=== PATIENT | male | born 1965 | race Caucasian/White ===

== ENCOUNTER → 2016-08-07 | Outpatient (CLI) | payer BC ==
[~2016-08-07] VITALS: Ht 182.9 cm; Wt 204.3 kg
[~2016-08-07] MED LIST: ALBU1AER9 INH; CMD75 PO; FRS/40 PO; GUAISYP4 PO; POTA20TA16 PO; SPIR25TA89 PO
[2016-08-07 16:16] VITALS: BP 146/91; PULSE 86; Ht 182.9 cm; Wt 204.3 kg
== END | disposition home or self-care (01) ==
LOC: C.NEUR 15:51
PROVIDERS: ATTEND Internal Medicine Pulmonary Disease
DX: G47.33 Obstructive sleep apnea (adult) (pediatric) (principal); I87.2 Venous insufficiency (chronic) (peripheral); E66.01 Morbid (severe) obesity due to excess calories; M19.90 Unspecified osteoarthritis, unspecified site; M25.50 Pain in unspecified joint

== ENCOUNTER 2018-08-08 09:32 | Inpatient (IN) ==
[2018-08-08] MEDS ORDERED: PANTOprazole 80 MG in DEXTROSE 5% 100 ML IV ONE (10:13)
[2018-08-08] MEDS ORDERED: SODIUM CHLORIDE 0.9% 500 ML IV ONE (10:16)
[2018-08-08 11:15] LABS: INR 2.6 (0.9-1.1); Partial Thromboplastin Ratio 1.1; Partial Thromboplastin Time 28.8 Seconds (21.0-31.0); Prothrombin Time 25.2 Seconds (9.0-12.0)
[2018-08-08 11:24] LABS: Albumin Level 3.1 gm/dl (3.4-5.0); BUN Creatinine Ratio 16.3 (10-20); Calcium 8.7 mg/dl (8.5-10.1); Creatinine Clr Calc Pharmacy 145.8 ml/min; Est GFR (African American) 88.4; Est GFR (Non-African American) 76.2; Hematocrit (blood only) 19.3 % (42-52); Mean Corpuscular Hgb Conc 31.1 g/dL (32-36); Mean Platelet Volume 10.3 fL (7.4-10.4); Nucleated RBC # (auto) 0.05 K/uL (0-0); Nucleated RBC % (auto) 0.7 %; Platelet Count 248 K/uL (130-400); Potassium 3.8 mmol/L (3.5-5.1); RDW Coefficient of Variation 16.1 % (11.5-14.5); RDW Standard Deviation 49.6 fL (36.4-46.3); Red Blood Count 2.27 M/uL (4.7-6.1); White Blood Count 6.96 K/uL (4.8-10.8)
[2018-08-08 11:28] LABS: Albumin Globulin Ratio 0.9 (0.9-2); Bilirubin,Total 0.6 mg/dl (0.2-1); Globulin 3.3 gm/dl (2.5-4.0); Total Protein 6.4 gm/dl (6.4-8.2); Troponin I 0.016 ng/ml (0-0.045)
[2018-08-08 11:31] LABS: Basophils # (auto) 0.03 K/uL (0-0.2); Basophils % (auto) 0.4 %; Eosinophils # (auto) 0.04 K/uL (0-0.5); Eosinophils % (auto) 0.6 %; Immature Granulocytes # (auto) 0.18 K/uL (0.00-0.02); Immature Granulocytes % (auto) 2.6 %; Lymphocytes # (auto) 0.75 K/uL (1.2-3.4); Lymphocytes % (auto) 10.8 %; Microcytosis Present; Monocytes # (auto) 0.85 K/uL (0.11-0.59); Monocytes % (auto) 12.2 %; Neutrophils # (auto) 5.11 K/uL (1.4-6.5); Neutrophils % (auto) 73.4 %; Polychromasia 1+
--- NOTE | 2018-08-08 12:34 | History & Physical Report ---
Date of Service August 08, 2018 Assessment & Plan (1) Acute blood loss anemia: Patient presents with a hemoglobin of 6 and 3-week history of melena. Patient takes meloxicam for arthritic complaints. The patient's been lightheaded. Patient be transfused 2 units of blood iron studies be checked in the morning GI consultation will be undertaken for possible endoscopy. Patient be put on bolus Protonix I personally spoke to Dr. Fowler who will review the patient and determine the need for endoscopy (2) HTN (hypertension): Patient typically takes furosemide and spironolactone for blood pressure control these be continued especially in the face of infusions of fluids and blood (3) Morbid obesity: Patient's morbid obesity does affect his ability to ventilate and he does have obstructive sleep apnea which will be placed on his home BiPAP (4) Arthritis: Patient's meloxicam will be held will be offered Ultram for pain control if needed (5) DVT (deep venous thrombosis): Patient typically takes Coumadin his INR is therapeutic on presentation, I spoke to Dr. Elizalde did not request reversal but did request just cessation of the Coumadin therapy at this time will use [facility] History of Present Illness Primary Care Provider: Joel Mendoza DO Patient presents with a 3-week history of melena takes chronic Coumadin therapy for previous DVT he also takes meloxicam therapy for generalized arthritic complaints. He was dyspneic this morning at work was nauseous and lightheaded he was told he looked as white as a sheet. Patient was found to have hemoglobin of 6 in the emergency department he was recommended for admission for acute blood loss anemia Allergies Allergy/AdvReac Type Severity Reaction Status Date / Time No Known Allergies Allergy Unknown Verified 08/08/18 10:13 Home Medications Home Medications Medication Instructions Recorded Confirmed Type acetaminophen [Tylenol Extra 0 mg PO DIRECTED PRN 08/08/18 08/08/18 History Strength] furosemide 40 mg PO DAILY 08/08/18 08/08/18 History meloxicam 15 mg PO DAILY 08/08/18 08/08/18 History potassium chloride 20 meq PO DAILY 08/08/18 08/08/18 History spironolactone 50 mg PO BID 08/08/18 08/08/18 History warfarin 5 mg PO DAILY 08/08/18 08/08/18 History Past Med/Surg History Medical History Acute blood loss anemia Arthritis DVT (deep venous thrombosis) Morbid obesity Obstructive sleep apnea Family History Unknown Hypertension Social History Feels Safe at Home: Yes Smoking Status: Never smoker Review of Systems ROS: well nourished well developed. Patient admits he is overweight No double vision blurry vision No problems with speech or swallowing No palpitations, chest pain or pressure No Wheezing dyspnea on exertion No abdominal pain he did have some mild nausea without vomiting on the morning of admission No burning urine urine frequency or changes in color No focal joint pain or muscle pain No skin rashes or oral lesions No unusual bruising or bleeding No focused back pain or numbness or loss of strength No changes in memory or confusion Physical Exam 2 Vital Signs (Past 24 Hours): Last Vital Signs Temp 36.9 C 08/08/18 09:36 Pulse 86 08/08/18 11:02 Resp 18 08/08/18 11:02 BP 137/73 08/08/18 11:02 Pulse Ox 96 08/08/18 11:02 The patient appeared well nourished and normally developed. He is morbidly obese and has a significant elevated body weight and BMI Vital signs as documented. Head exam is unremarkable. No scleral icterus or corneal arcus noted Neck is without lymphademopathy, trachea is midline Lungs are clear to auscultation and percussion. Diminished Cardiac exam reveals Rhythm is regular. But very distant Abdominal exam reveals normal bowel sounds, no masses, no organomegaly difficult to examine due to his body size Extremities are mildly edematous and his hands are significantly large difficult to assess pulses Neurologic exam is A&Ox3, no focal deficits, strength is equal bilateral Skin is warm Dry without bruises or lesions
--- NOTE | 2018-08-08 14:19 | Emergency Department Note ---
History of Present Illness General Chief complaint: Rectal Bleed Stated complaint: RECTAL BLEED Time Seen by Provider: 08/08/18 09:39 History of Present Illness Maximum Pain Intensity: 3 52-year-old male who presents to the emergency department with his for evaluation of black stools occasionally mixed with red blood. The patient reports that he has had dark stools for the past 3 weeks. The patient also reports progressively worsening weakness and shortness of breath over the past week. The patient reports that he cannot walk distances like he used to. The patient is currently taking warfarin for history of DVT. He denies history of heart disease or lung disease. The patient reports that he has not seen his doctor in several months. The patient denies any prior history of GI bleed. The patient has not had a prior colonoscopy study. He rates his discomfort a 3 out of 10. Home Medications Home Medications Medication Instructions Recorded Confirmed Type acetaminophen [Tylenol Extra 0 mg PO DIRECTED PRN 08/08/18 08/08/18 History Strength] furosemide 40 mg PO DAILY 08/08/18 08/08/18 History meloxicam 15 mg PO DAILY 08/08/18 08/08/18 History potassium chloride 20 meq PO DAILY 08/08/18 08/08/18 History spironolactone 50 mg PO BID 08/08/18 08/08/18 History warfarin 5 mg PO DAILY 08/08/18 08/08/18 History Allergies Allergy/AdvReac Type Severity Reaction Status Date / Time No Known Allergies Allergy Unknown Verified 08/08/18 10:13 Past Med/Surg History Medical History Acute blood loss anemia Arthritis DVT (deep venous thrombosis) Morbid obesity Obstructive sleep apnea Family History Unknown Hypertension Social History marital status: Current Living Situation: Spouse current occupational status: employed Feels Safe at Home: Yes Smoking Status: Never smoker Hx Alcohol Use: Yes Alcohol Intake Frequency: holidays/special occasions only Review of Systems HEENT: Denies dizziness, visual problems, hearing loss, tinnitus. Denies difficulty swallowing or oral lesions. PULMONARY: Denies cough, sputum production or hemoptysis. CARDIOVASCULAR: Denies palpitations, orthopnea or peripheral edema. GASTROINTESTINAL: See HPI. GENITOURINARY: Denies dysuria, frequency, urgency or nocturia. NEUROLOGIC: Denies history of epilepsy, CVA, TIA or chronic headaches. MUSCULOSKELETAL: Denies history of joint tenderness/swelling. SKIN: Denies rashes or lesions. PSYCHIATRIC: Denies history of depression or mental illness. ENDOCRINE: Denies history of diabetes or thyroid disorders. Physical Exam Vital Signs Vital Signs - 24 hr 08/08/18 09:36 08/08/18 09:45 08/08/18 10:24 Temperature 36.9 C Temperature Source Oral Oral Sepsis Recent Fever Within 48 Hours No Sepsis New/Unexplained Change in Mental Status No Sepsis Action Taken by Nursing No Action Required Pulse Rate - Sitting Pulse Rate - Standing Pulse Rate 100 H Pulse Rate [Apical] Pulse Rhythm Pulse Strength Respiratory Rate 32 H Blood Pressure - Sitting Blood Pressure- Standing Blood Pressure 146/80 H Blood Pressure [Right Arm] Blood Pressure Mean 102 Blood Pressure Mean [Right Arm] Blood Pressure Position Blood Pressure Position [Right Arm] Pulse Oximetry 99 98 Oxygen Delivery Method Room Air Room Air 08/08/18 11:02 08/08/18 13:00 08/08/18 13:27 Temperature 36.8 C Temperature Source Oral Sepsis Recent Fever Within 48 Hours Sepsis New/Unexplained Change in Mental Status Sepsis Action Taken by Nursing Pulse Rate - Sitting 86 Pulse Rate - Standing 100 H Pulse Rate 77 Pulse Rate [Apical] 86 84 Pulse Rhythm Regular Pulse Strength Normal Respiratory Rate 18 18 20 Blood Pressure - Sitting 137/73 Blood Pressure- Standing 140/81 Blood Pressure 137/63 Blood Pressure [Right Arm] 137/73 134/75 Blood Pressure Mean 87 Blood Pressure Mean [Right Arm] 94 94 Blood Pressure Position Lying Blood Pressure Position [Right Arm] Sitting Pulse Oximetry 96 98 96 Oxygen Delivery Method 08/08/18 13:44 08/08/18 13:59 08/08/18 14:00 Temperature 36.9 C 36.8 C Temperature Source Oral Oral Sepsis Recent Fever Within 48 Hours Sepsis New/Unexplained Change in Mental Status Sepsis Action Taken by Nursing Pulse Rate - Sitting Pulse Rate - Standing Pulse Rate 77 85 Pulse Rate [Apical] Pulse Rhythm Regular Regular Pulse Strength Normal Normal Respiratory Rate 20 20 Blood Pressure - Sitting Blood Pressure- Standing Blood Pressure 133/60 133/60 130/53 L Blood Pressure [Right Arm] Blood Pressure Mean 84 84 78 Blood Pressure Mean [Right Arm] Blood Pressure Position Blood Pressure Position [Right Arm] Pulse Oximetry 97 96 Oxygen Delivery Method 08/08/18 14:01 Temperature Temperature Source Sepsis Recent Fever Within 48 Hours Sepsis New/Unexplained Change in Mental Status Sepsis Action Taken by Nursing Pulse Rate - Sitting Pulse Rate - Standing Pulse Rate Pulse Rate [Apical] 83 Pulse Rhythm Pulse Strength Respiratory Rate 20 Blood Pressure - Sitting Blood Pressure- Standing Blood Pressure Blood Pressure [Right Arm] 130/53 L Blood Pressure Mean Blood Pressure Mean [Right Arm] 78 Blood Pressure Position Blood Pressure Position [Right Arm] Pulse Oximetry 97 Oxygen Delivery Method CONSTITUTIONAL: Healthy and well nourished. Alert and oriented X 3. Patient does not appear in any acute distress. HEENT: Normocephalic, atraumatic. Pupils equal, round and reactive. No scleral icterus or obvious conjunctival injection/pallor. No tonsillar hypertrophy or exudates. NECK: Full active range of motion without discomfort. No JVD or carotid bruits. RESPIRATORY: Clear to auscultation bilaterally with no wheezing, crackles, rhonchi or stridor. CARDIOVASCULAR: Regular rate and rhythm with no murmurs, rubs or gallops. GASTROINTESTINAL: Bowel sounds present in all quadrants. Patient has generalized and minimal tenderness to palpation of the abdomen without rigidity , guarding or rebound. Negative CVA tenderness. Negative McBurney's point tenderness. No rigidity, guarding or rebound. MUSCULOSKELETAL: Full range of motion of all joints without discomfort. INTEGUMENTARY: No rash or other significant dermatologic conditions noted. NEUROLOGIC: No focal neurologic deficits noted. PSYCHIATRIC: Positive affect. Course Patient history and physical exam were performed. Nurse's notes were reviewed. Vital signs were reviewed. Patient does have a pulse rate of 100 and respiratory rate of 32. The patient was afebrile and mildly hypertensive at 146 /80. The patient did not appear in any acute distress. IV access was established, and labs are drawn. An ECG and chest x-ray were performed and were normal. The patient was hydrated with a liter normal saline, and was administered Protonix 80 mg IVP. Labs were reviewed to show a hemoglobin of 6, hematocrit of 19.3. Platelet count is normal. INR is therapeutic at 2.6. Partial renal profile, LFTs, lipase and troponin are normal. Initial type and screen were performed. The case was discussed with Dr. Sweet, ED attending physician, who ordered 2 units of packed red blood cells. I then discussed the case with Dr. Caban, [facility] hospitalist for further evaluation, admission and treatment. Please see his dictation for further treatment and final disposition. Administered Medications Discontinued Medications Sodium Chloride (Nss) 500 mls @ 999 mls/hr IV .Q31M ONE Stop: 08/08/18 10:46 Last Infusion: 08/08/18 11:33 Dose: 0 mls/hr Admin: 08/08/18 11:00 Dose: 999 mls/hr Pantoprazole Sodium 80 mg/ (Dextrose) 120 mls @ 400 mls/hr IV NOW ONE Stop: 08/08/18 10:30 Last Infusion: 08/08/18 11:33 Dose: 0 mls/hr Admin: 08/08/18 11:00 Dose: 400 mls/hr Medical Decision Making Medical Records Attestation: I reviewed the patient's medical records. Home Medications Current Medication List: was personally reviewed by me Laboratory Data Attestation: I reviewed the patient's lab results. Result diagrams: 08/08/18 10:34 08/08/18 10:34 Lab Results 08/08/18 08/08/18 08/08/18 Range/Units 02:09 10:34 10:34 WBC 6.96 (4.8-10.8) K/uL RBC 2.27 L (4.7-6.1) M/uL Hgb 6.0 L* (14.0-18.0) g/dL Hct 19.3 L* (42-52) % MCV 85.0 (80-100) fL MCH 26.4 (25-34) pg MCHC 31.1 L (32-36) g/dL RDW Std Deviation 49.6 H (36.4-46.3) fL RDW Coeff of Randy 16.1 H (11.5-14.5) % Plt Count 248 (130-400) K/uL MPV 10.3 (7.4-10.4) fL Immature Gran % (Auto) 2.6 % Neut % (Auto) 73.4 % Lymph % (Auto) 10.8 % [place] % (Auto) 12.2 % Eos % (Auto) 0.6 % Baso % (Auto) 0.4 % Immature Gran # (Auto) 0.18 H (0.00-0.02) K/uL Neut # (Auto) 5.11 (1.4-6.5) K/uL Lymph # (Auto) 0.75 L (1.2-3.4) K/uL [place] # (Auto) 0.85 H (0.11-0.59) K/uL Eos # (Auto) 0.04 (0-0.5) K/uL Baso # (Auto) 0.03 (0-0.2) K/uL Absolute Nucleated RBC 0.05 H (0-0) K/uL Nucleated RBC % (auto) 0.7 % Polychromasia 1+ Microcytosis Present PT 25.2 H (9.0-12.0) Seconds INR 2.6 H (0.9-1.1) APTT 28.8 (21.0-31.0) Seconds PTT Ratio 1.1 Sodium (136-145) mmol/L Potassium (3.5-5.1) mmol/L Chloride (98-107) mmol/L Carbon Dioxide (21-32) mmol/L Anion Gap (3-11) BUN (7-18) mg/dl Creatinine (0.6-1.4) mg/dl Est Cr Clr Drug Dosing ml/min Est GFR ( Amer) Est GFR (Non-Af Amer) BUN/Creatinine Ratio (10-20) Glucose (70-99) mg/dl Calcium (8.5-10.1) mg/dl Total Bilirubin (0.2-1) mg/dl AST (15-37) U/L ALT (12-78) U/L Alkaline Phosphatase (45-117) U/L Troponin I (0-0.045) ng/ml Total Protein (6.4-8.2) gm/dl Albumin (3.4-5.0) gm/dl Globulin (2.5-4.0) gm/dl Albumin/Globulin Ratio (0.9-2) Blood Type Blood Type Recheck B Positive Antibody Screen Crossmatch 08/08/18 08/08/18 Range/Units 10:34 10:34 WBC (4.8-10.8) K/uL RBC (4.7-6.1) M/uL Hgb (14.0-18.0) g/dL Hct (42-52) % MCV (80-100) fL MCH (25-34) pg MCHC (32-36) g/dL RDW Std Deviation (36.4-46.3) fL RDW Coeff of Randy (11.5-14.5) % Plt Count (130-400) K/uL MPV (7.4-10.4) fL Immature Gran % (Auto) % Neut % (Auto) % Lymph % (Auto) % [place] % (Auto) % Eos % (Auto) % Baso % (Auto) % Immature Gran # (Auto) (0.00-0.02) K/uL Neut # (Auto) (1.4-6.5) K/uL Lymph # (Auto) (1.2-3.4) K/uL [place] # (Auto) (0.11-0.59) K/uL Eos # (Auto) (0-0.5) K/uL Baso # (Auto) (0-0.2) K/uL Absolute Nucleated RBC (0-0) K/uL Nucleated RBC % (auto) % Polychromasia Microcytosis PT (9.0-12.0) Seconds INR (0.9-1.1) APTT (21.0-31.0) Seconds PTT Ratio Sodium 138 (136-145) mmol/L Potassium 3.8 (3.5-5.1) mmol/L Chloride 106 (98-107) mmol/L Carbon Dioxide 25 (21-32) mmol/L Anion Gap 7.0 (3-11) BUN 18 (7-18) mg/dl Creatinine 1.10 (0.6-1.4) mg/dl Est Cr Clr Drug Dosing 145.8 ml/min Est GFR ( Amer) 88.4 Est GFR (Non-Af Amer) 76.2 BUN/Creatinine Ratio 16.3 (10-20) Glucose 102 H (70-99) mg/dl Calcium 8.7 (8.5-10.1) mg/dl Total Bilirubin 0.6 (0.2-1) mg/dl AST 17 (15-37) U/L ALT 21 (12-78) U/L Alkaline Phosphatase 47 (45-117) U/L Troponin I 0.016 (0-0.045) ng/ml Total Protein 6.4 (6.4-8.2) gm/dl Albumin 3.1 L (3.4-5.0) gm/dl Globulin 3.3 (2.5-4.0) gm/dl Albumin/Globulin Ratio 0.9 (0.9-2) Blood Type B Positive Blood Type Recheck Antibody Screen NEGATIVE Crossmatch See Detail Imaging Data Attestation: I personally reviewed and interpreted this imaging study as follows : My Impression: My interpretation of a portable chest x-ray does not show any consolidations, pneumothorax or cardiac prominence. ECG Data Attestation: I personally reviewed and interpreted this ECG as follows: Indication: weakness Rhythm: normal sinus Blood Pressure Blood Pressure Findings: Normal blood pressure MDM Narrative Patient presents with complaint of melanotic stool, weakness, chest pain and shortness of breath. The patient is currently on Coumadin for history of DVT. His workup today shows a profound anemia secondary to an upper GI bleed. The patient is therapeutic with an INR of 2.6. The patient will be administered a blood transfusion, and will likely need GI consultation for upper and lower endoscopy. Workup today does not show any evidence for an acute cardiopulmonary injury. His renal function is normal. Impression & Plan Upper GI bleed, Severe anemia Critical Care Time I have personally spent greater than 30 minutes of critical care time in the direct management of this patient. This includes bedside care, interpretation of diagnostic studies, and testing, discussion with consultants, patient, and family members, and other required patient management activities. This 30 minutes is in excess of all separately billable procedures. Critical Care Time: Yes Total Critical Care Time: 35 Discharge Plan Visit Data Chief Complaint: Rectal Bleed Stated Complaint: RECTAL BLEED ED Provider: Abad Sweet ED Midlevel Provider: Alfredito Bill Discharge Problem: Upper GI bleed, Severe anemia
[2018-08-08] MEDS ORDERED: ALUMINUM/MAGNESIUM SUSP 30 ML UDC PO PRN (14:44)
[2018-08-08] MEDS ORDERED: TRAMADOL HCL 50 MG TABLET PO PRN (14:44)
[2018-08-08] MEDS ORDERED: OXYCODONE HCL IR 5 MG TAB (IMMEDIATE RELEASE) PO PRN (14:44)
[2018-08-08] MEDS ORDERED: ACETAMINOPHEN 500 MG TAB PO PRN (14:44)
[2018-08-08] MEDS ORDERED: ONDANSETRON INJ 2 MG/ML 2 ML VIAL IV PRN (14:44)
[2018-08-08] MEDS: PANTOprazole 40 MG in SYRINGE 0 ML IV SCH ×2 (16:30→20:51)
--- NOTE | 2018-08-08 19:23 | Consultation Report ---
DATE OF CONSULTATION: 08/08/2018 ATTENDING PHYSICIAN: Duong Caban MD CONSULTING PHYSICIAN: Kody Fowler DO REASON FOR CONSULTATION: Melena, acute blood loss anemia. HISTORY OF PRESENT ILLNESS: Eduardo Young is a 52-year-old male who presented to the Department of Emergency Medicine today with a 3-week history of melena. He states that he has been taking Meloxicam for arthritic complaints as well as Coumadin therapy for a history of a DVT and stated that over the past 4-5 days he had noted a much higher volume of black tarry stools, which caused lightheadedness and dizziness and decreased tolerance of exercise with dyspnea on exertion. Upon arrival to the Department of Emergency Medicine, he was noted to have an H and H of 6.0 and 19.3. His INR was elevated at 2.6. His BUN and creatinine were 18 and 1.1. He subsequently was admitted and placed on a Protonix drip after I discussed the case with Dr. Caban. As the patient ate this morning and is currently receiving 2 units of packed red blood cells and transfusion decision was made to hold off on any invasive testing today unless his symptoms worsened. He was subsequently admitted. At the time that I saw him, he stated that his lightheadedness and dizziness had improved. He stated that he feels 100% better than when he arrived. He denied any abdominal pain, fevers, chills, nausea, vomiting, hematemesis, or further melena since his arrival. He further denied any chest pain, shortness of breath, cough, dysuria, or hematuria. He had no further complaints. PAST MEDICAL HISTORY: Includes history of DVT on chronic Coumadin therapy, morbid obesity, obstructive sleep apnea, and arthritis. PAST SURGICAL HISTORY: Negative. FAMILY HISTORY: Negative for GI malignancy or inflammatory bowel disease. SOCIAL HISTORY: He is . He lives with his spouse. 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 He denies any tobacco, alcohol, or illicit drug use. ALLERGIES: None. MEDICATIONS AT PRESENT: Include Tylenol 1 g p.o. daily p.r.n., furosemide 40 mg p.o. daily, Zofran 4 mg IV q. 6 p.r.n. nausea, oxycodone 5 mg p.o. q. 6 p.r.n. pain, Protonix drip at 8 mg per hour. REVIEW OF SYSTEMS: Negative x12 system review other than pertinent positives listed in the HPI. PHYSICAL EXAMINATION: VITAL SIGNS: Include a temperature of 36.7, pulse 73, respirations 18, blood pressure 146/70, pulse ox is 98% on room air. GENERAL: He is awake, cooperative, morbidly obese. HEAD: Normocephalic, atraumatic. EYES: Extraocular muscles are intact. ENT: External evaluation of ears and nose are normal. Oropharynx is clear. NECK: Soft and supple. CHEST: Clear to auscultation anterior lung griffiths, decreased breath sounds bilateral bases. CARDIOVASCULAR SYSTEM: Distant heart sounds, regular rate and rhythm. ABDOMEN: Soft, nontender, nondistended. Positive bowel sounds. There is no appreciable hepatosplenomegaly or stigmata of chronic liver disease. EXTREMITIES: No clubbing, cyanosis, or edema. SKIN: Noted pallor. RADIOGRAPHIC STUDIES AND LABORATORY STUDIES: Reviewed in the HPI. IMPRESSION: A 52-year-old male with acute blood loss anemia and melena. PLAN: At the present time, I would recommend the patient be on clear liquid diet today, be kept n.p.o. after midnight, receive completion of his 2 units packed red blood cells, maintain his H and H around 8 and 24 with transfusion as needed per the primary team. I would recommend that he be continued on a Protonix drip at 8 mg per hour and I will perform an upper endoscopy tomorrow to further evaluate the source of his GI bleeding. Once again, thanks for allowing me to participate in the care of this patient. If he has any further problems or complications overnight, there is an on-call doctor on for our service and he should be contacted immediately. Otherwise, we will proceed with the above-noted plan. Once again, thanks for allowing me to participate in the care of this patient. If you have any further questions, please do not hesitate in contacting me.
[2018-08-08] MEDS: SODIUM CHLORIDE 0.9% 1000ML 1,000 ML IV SCH (20:46)
[2018-08-08] MEDS: SPIRONOLACTONE 25 MG TAB PO SCH (20:50)
--- NOTE | 2018-08-08 21:43 | XRay Report ---
XR abdomen 2V w PA chest HISTORY: 52 years-old Male GI bleed, abd/chest pain acute generalized abdominal pain with acute atyp ical chest pain COMPARISON: Chest radiograph 07/30/2013 TECHNIQUE: PA view of the chest with erect and supine views of the abdomen FINDINGS: Cardiac silhouette is mildly enlarged, unchanged. Subsegmental bibasilar opacities, likely atelectati c. No pneumothorax, pleural effusion or overt pulmonary edema. Degenerative changes of the shoulders and spine. No pneumatosis or pneumoperitoneum identified. Mild gaseous distention of the colon about the central abdomen. Moderate lentiform stool involving the right hemicolon. No definite urolith. Degenerative c hanges are noted throughout the spine, pelvis and hips. IMPRESSION: 1. No acute process of the chest. 2. Nonobstructive bowel gas pattern without pneumoperitoneum. The above report was generated using voice recognition software. It may contain grammatical, syntax o r spelling errors. Electronically signed by: Pee Armstrong M.D. 08/08/2018 9:42 PM
[2018-08-09] MEDS: SODIUM CHLORIDE 0.9% 1000ML 1,000 ML IV SCH (04:53)
[2018-08-09 07:03] LABS: Hematocrit (blood only) 23.4 % (42-52); Hemoglobin 7.5 g/dL (14.0-18.0); Mean Corpuscular Hgb Conc 32.1 g/dL (32-36); Mean Corpuscular Volume 85.4 fL (80-100); Mean Platelet Volume 10.3 fL (7.4-10.4); Nucleated RBC # (auto) 0.05 K/uL (0-0); Nucleated RBC % (auto) 0.9 %; Platelet Count 233 K/uL (130-400); RDW Coefficient of Variation 15.8 % (11.5-14.5); RDW Standard Deviation 48.9 fL (36.4-46.3); Red Blood Count 2.74 M/uL (4.7-6.1)
[2018-08-09 07:37] LABS: Iron 27 mcg/dl (35-175)
[2018-08-09] MEDS: SPIRONOLACTONE 25 MG TAB PO SCH ×2 (08:43→20:21)
[2018-08-09] MEDS: POTASSIUM CHLORIDE 20 MEQ TABCR PO SCH (08:43)
[2018-08-09] MEDS: FUROSEMIDE 40 MG TAB PO SCH (08:43)
--- NOTE | 2018-08-09 09:28 | Anesthesiology Consultation ---
Date of Service August 09, 2018 Assessment & Plan Chart Review Chart Review: Acceptable Risk for Surgery Consults Requested none ASA ASA4 Proposed Anesthesia Anesthesia Type: MAC Risk / Benefits Reviewed With: PT / POA / Parent / Guardian, Accepts Plan and Informed Consent Obtained NPO Date Last Intake of Fluids: 08/09/18 Time Last Intake of Fluids: 07:30 Date Last Intake of Solids: 08/08/18 Time Last Intake of Solids: 05:45 History Surgery Operation Date: 08/09/18 10:30 Proposed Procedures p Esophagogastroduodenoscopy Dr Malcolm Fowler DO Height/Weight Height: 6 ft 3 in Weight: 208.1 kg Allergies Allergy/AdvReac Type Severity Reaction Status Date / Time No Known Allergies Allergy Unknown Verified 08/08/18 10:13 Medications Home Medications Medication Instructions Recorded Confirmed Last Taken acetaminophen [Tylenol Extra 0 mg PO DIRECTED PRN 08/08/18 08/08/18 Unknown Strength] furosemide 40 mg PO DAILY 08/08/18 08/08/18 Unknown meloxicam 15 mg PO DAILY 08/08/18 08/08/18 Unknown potassium chloride 20 meq PO DAILY 08/08/18 08/08/18 Unknown spironolactone 50 mg PO BID 08/08/18 08/08/18 Unknown warfarin 5 mg PO DAILY 08/08/18 08/08/18 Unknown Active Medications Generic Name Dose Route Start Last Admin Trade Name Freq PRN Reason Stop Dose Admin Furosemide 40 mg 08/09/18 09:00 08/09/18 08:43 Lasix PO 09/08/18 08:59 40 mg DAILY RADHA Administration Pantoprazole Sodium 40 mg/ 10 mls @ 5 mls/min 08/08/18 14:44 08/08/18 20:51 Syringe IV 09/07/18 14:43 5 mls/min BID RADHA Administration Potassium Chloride 20 meq 08/09/18 09:00 08/09/18 08:43 Klor-Con M20 PO 09/08/18 08:59 20 meq DAILY RADHA Administration Spironolactone 50 mg 08/08/18 21:00 08/09/18 08:43 Aldactone PO 09/07/18 20:59 50 mg BID RADHA Administration Past Medical History Medical History Acute blood loss anemia Arthritis DVT (deep venous thrombosis) Morbid obesity Obstructive sleep apnea Past Family History Family History Unknown Hypertension Social History Smoking Status: Never smoker tobacco type: smokeless tobacco Do You Dip or Chew Tobacco: Yes Hx Alcohol Use: No alcohol intake frequency: holidays/special occasions only Hx Substance Use: No Physical Exam Vital Signs Last Vital Signs Temp 97.5 F L 08/09/18 10:23 Pulse 78 08/09/18 10:23 Resp 20 08/09/18 10:23 BP 139/76 08/09/18 10:23 Pulse Ox 98 08/09/18 10:23 ENMT Mouth: no dentition abnormality Thyromental Distance: > or= 3.5 Finger Breadths Mallampati Class: IV Respiratory normal respiratory effort Auscultation: lungs clear to auscultation bilaterally Cardiovascular Rate/Rhythm: regular rate and regular rhythm Testing Electrocardiogram Date: 08/08/18 Findings: + NSR @ (86 bpm) Laboratory Results 08/09/18 06:19 08/09/18 08:56 Blood Type B Positive 08/08/18 10:34 Antibody Screen NEGATIVE 08/08/18 10:34 PT 23.1 Seconds (9.0-12.0) H 08/09/18 08:56 INR 2.4 (0.9-1.1) H 08/09/18 08:56 APTT 28.8 Seconds (21.0-31.0) 08/08/18 10:34
[2018-08-09 09:43] LABS: INR 2.4 (0.9-1.1); Prothrombin Time 23.1 Seconds (9.0-12.0)
[2018-08-09 09:54] LABS: BUN Creatinine Ratio 11.5 (10-20); Calcium 8.8 mg/dl (8.5-10.1); Creatinine Clr Calc Pharmacy 170.4 ml/min; Est GFR (African American) 105.5; Potassium 4.4 mmol/L (3.5-5.1)
[2018-08-09] MEDS ORDERED: fentaNYL citrate 100 MCG/2 ML VIAL ONE (10:35)
[2018-08-09] MEDS ORDERED: PROPOFOL IV EMULSION 10 MG/ML 20 ML VIAL IV ONE (10:35)
[2018-08-09] MEDS ORDERED: LIDOCAINE HCL 2% 2 ML VIAL/AMP(20MG/ML) INFIL ONE (10:35)
--- NOTE | 2018-08-09 10:40 | Gastroenterology Progress Note ---
Date of Service August 09, 2018 Assessment & Plan (1) Acute blood loss anemia: (2) Upper GI bleed: (3) Melena: Proceed with EGD Subjective No further melena overnight. Denies abdominal pain. H/H at 7.6 this AM following 2 u PRBC's. He is being transfused an additional 2 u PRBC now, as per Dr. Garza. Feeling, "much better today." Physical Exam 2 Vital Signs (Past 24 Hours): Last Vital Signs Temp 36.4 C L 08/09/18 10:23 Pulse 78 08/09/18 10:23 Resp 20 08/09/18 10:23 BP 139/76 08/09/18 10:23 Pulse Ox 98 08/09/18 10:23 Constitutional: WD/WN, vitals as above Respiratory: Auscultation: lungs clear to auscultation bilaterally Cardiovascular: Rate/Rhythm: regular rate and regular rhythm Gastrointestinal (Abdomen): Percussion/Palpation: abdomen soft; abdomen nontender
[2018-08-09] MEDS ORDERED: KETAMINE HCL INJ 50 MG/ML 10 ML VIAL ONE (11:22)
[2018-08-09] MEDS ORDERED: MIDAZOLAM HCL 1 MG/ML 2ML VIAL ONE (11:26)
--- NOTE | 2018-08-09 11:36 | GI REPORT ---
Patient Name: Eduardo Young Procedure Date: 08/09/2018 10:38 AM Date of : 1965 Admit Type: Inpatient Age: 52 Gender: Male Attending MD: Kody Fowler DO Procedure: Upper GI endoscopy Providers: Kody Fowler DO Referring MD: Poonam Garza Md Indications: Acute post hemorrhagic anemia, Melena Medicines: Monitored Anesthesia Care Complications: No immediate complications. Estimated Blood Loss: Estimated blood loss: none. Procedure: Pre-Anesthesia Assessment: - Prior to the procedure, a History and Physical was performed, and patient medications and allergies were reviewed. The patient's tolerance of previous anesthesia was also reviewed. The risks and benefits of the procedure and the sedation options and risks were discussed with the patient. All questions were answered, and informed consent was obtained. Prior Anticoagulants: The patient has taken Coumadin (warfarin), last dose was 5 days prior to procedure. ASA Grade Assessment: IV - A patient with severe systemic disease that is a constant threat to life. After reviewing the risks and benefits, the patient was deemed in satisfactory condition to undergo the procedure. After obtaining informed consent, the endoscope was passed under direct vision. Throughout the procedure, the patient's blood pressure, pulse, and oxygen saturations were monitored continuously. The Endoscope was introduced through the mouth, and advanced to the second part of duodenum. The upper GI endoscopy was accomplished without difficulty. The patient tolerated the procedure well. Findings: The esophagus was normal. One non-bleeding cratered gastric ulcer with no stigmata of bleeding was found in the gastric antrum. The lesion was 5 mm in largest dimension. Biopsies were taken with a cold forceps for Helicobacter pylori testing. The examined duodenum was normal. Impression: - Normal esophagus. - Non-bleeding gastric ulcer with no stigmata of bleeding. Biopsied. - Normal examined duodenum. Recommendation: - [facility] patient to [facility] for [facility] care. - Advance diet as tolerated. - Await pathology results. - Continue present medications. - Resume Coumadin as per primary team, if he still needs to be on this medication. I would not resume for at least 5 additional days at this time. Kody Fowler DO 08/09/2018 11:36:29 AM This report has been signed electronically. Note Initiated On: 08/09/2018 10:38 AM Number of Addenda: 0 I attest to the content of the Intraoperative Record and orders documented therein, exceptions below {[id number]}
--- NOTE | 2018-08-09 12:37 | Anesthesiology Progress Note ---
Date of Service August 09, 2018 Anesthesia Post Procedure Vital Signs Vital Signs: Temp Pulse Pulse Pulse Resp BP BP 08/09/18 12:03 74 18 08/09/18 11:48 76 18 08/09/18 11:33 96.8 F L 78 14 08/09/18 10:23 97.5 F L 78 78 20 139/76 08/09/18 09:55 99.1 F 77 18 120/57 L 08/09/18 09:35 98.2 F 72 20 123/76 08/09/18 09:21 98.1 F 73 18 146/66 H 08/09/18 09:08 97.7 F 70 20 133/53 L 08/09/18 08:35 98.6 F 73 20 08/09/18 04:05 98.1 F 72 25 H 08/09/18 00:23 98.1 F 74 23 08/09/18 00:00 69 08/08/18 19:50 97.9 F 77 16 08/08/18 19:36 98.2 F 78 20 128/96 08/08/18 18:30 98.2 F 74 18 145/65 H 08/08/18 17:30 98.1 F 73 18 146/70 H 08/08/18 16:55 98.2 F 78 20 146/69 H 08/08/18 16:39 98.1 F 79 20 145/80 H 08/08/18 16:26 97.9 F 77 20 137/71 08/08/18 16:23 97.9 F 77 20 137/71 08/08/18 15:48 98.6 F 76 22 08/08/18 15:00 98.4 F 82 20 136/69 08/08/18 14:35 98.4 F 78 20 08/08/18 14:01 83 20 08/08/18 14:00 130/53 L 08/08/18 13:59 98.2 F 85 20 133/60 08/08/18 13:44 98.4 F 77 20 133/60 08/08/18 13:27 98.2 F 77 20 137/63 08/08/18 13:00 84 18 BP Pulse Ox 08/09/18 12:03 129/57 L 98 08/09/18 11:48 114/70 97 08/09/18 11:33 134/66 94 08/09/18 10:23 98 08/09/18 09:55 99 08/09/18 09:35 99 08/09/18 09:21 99 08/09/18 09:08 96 08/09/18 08:35 133/53 L 95 08/09/18 04:05 99/63 L 97 08/09/18 00:23 93/74 L 91 08/09/18 00:00 08/08/18 19:50 145/68 H 97 08/08/18 19:36 97 08/08/18 18:30 97 08/08/18 17:30 98 08/08/18 16:55 98 08/08/18 16:39 97 08/08/18 16:26 96 08/08/18 16:23 96 08/08/18 15:48 139/66 97 08/08/18 15:00 97 08/08/18 14:35 138/56 L 98 08/08/18 14:01 130/53 L 97 08/08/18 14:00 08/08/18 13:59 96 08/08/18 13:44 97 08/08/18 13:27 96 08/08/18 13:00 134/75 98 Pain Intensity Abdomen: Pain Intensity: 3 Notes Mental Status: alert / awake / arousable and participated in evaluation Patient Amnestic to Procedure: Yes Nausea / Vomiting: adequately controlled Pain: adequately controlled Airway Patency, RR, SpO2: stable & adequate BP & HR: stable & adequate Hydration State: stable & adequate Anesthetic Complications: no major complications apparent and Pt Satisfied with anesthetic care
[2018-08-09] MEDS: NICOTINE 21 MG/24 HR TDSY TD SCH (12:53)
[2018-08-09] MEDS: PANTOprazole 40 MG in SYRINGE 0 ML IV SCH ×2 (12:53→20:21)
--- NOTE | 2018-08-09 16:50 | Hospitalist Progress Note ---
Date of Service August 09, 2018 Assessment & Plan (1) Acute blood loss anemia: Patient presents with a hemoglobin of 6 and a 5-week history of waxing and waning melena, along with shortness of breath and severe fatigue. Patient takes meloxicam for arthritic complaints, as well as Coumadin for history of recurrent DVT. EGD today with clean-based gastric ulcer without stigmata of bleeding. His INR was 2.6 on admission, vitamin K was not given. Today his INR is down to 2.4 with holding Coumadin. He is already symptomatically much improved but remains mildly hypotensive this morning -He is now status post transfusion of 2 units PRBCs and hemoglobin is only up to 7.5 by the following day -Transfuse 2 more units of PRBCs today -Continue Protonix 40 mill grams IV twice daily and convert to p.o. tomorrow and he should remain on this as an outpatient for at least 2 months -Advised not to take meloxicam or any other NSAIDs, except he could take Celebrex 200 mg once daily as needed for arthritic complaints. He reports that Tylenol does nothing for him, and he does not want to be on opioids (he has tried tramadol in the past as well). Advised that Celebrex would not likely has much effect at contributing to PUD -Continue to hold Coumadin for 5 more days as per GI recommendations-he can restarted on 08/14 -Follow INR in the morning and as long as not going up, no need to give vitamin K at this point as the ulcer has stopped bleeding -Appreciate gastroenterology management -Continue telemetry monitoring in case of rebleed (2) Upper GI bleed: Secondary to gastric ulcer as above -Management as above (3) HTN (hypertension): Blood pressures were mildly low this morning, now improved with getting blood transfusion -Continue Lasix, spironolactone (4) Morbid obesity: With super morbid obesity, BMI 57.3 -He has already committed himself to a weight loss program as his New Year's resolution -After this transfusion, he is cleared to restart a diet and exercise program as tolerated -He would benefit from referral to dietitian as an outpatient versus obesity management physician (5) Arthritis: With discussion as above, would avoid traditional NSAIDs, but if really needed, could try Celebrex 200 mg once daily (6) Lower extremity edema: Secondary to morbid obesity with dependent edema, possibly has some element of right-sided heart failure given history of JAMILA with BiPAP and likely with restrictive lung disease secondary to morbid obesity -Continue Lasix and spironolactone -Recommend weight loss (7) JAMILA treated with BiPAP: Continue BiPAP from home while here nightly (8) History of DVT (deep vein thrombosis): With a history of 2 lifetime left lower extremity DVTs-he is committed to lifelong anticoagulation as he is high risk for recurrence. -Holding Coumadin for now in the setting of severe GI bleed, but I do feel he should restart this and GI is okay with this after waiting 5 more days to watch for rebleeding -Plan to restart Coumadin on 08/14 and watch INR closely at that point -It should be noted that the patient reports he did not get his INR checked for 6-7 months prior to this admission-I explained how dangerous Coumadin can be and that close monitoring is very important. He now understands this and reports he will be more compliant with INR testing (9) Tobacco user: He chews 1 can of tobacco a day. He was counseled on cessation of tobacco products -Started nicotine patch 21 mg once daily (10) DVT prophylaxis: SCDs, no chemical anticoagulation due to GI bleeding as above Disposition-remain on telemetry, if hemoglobin rises appropriate in the morning after transfusion today and he has no further bleeding and is hemodynamically stable, he can be discharged home Subjective Pt feeling a lot better today. No more SOB, no chest pressure. No abd pain. He has not had any further black stools. The patient reports that he really does not like going to the doctor at all. He does not have a primary care physician that he sees regularly. He reports he has not had his INR checked for at least 6 or 7 months prior to this admission but continues to take Coumadin. He reports he has been having melena pretty much every day for the last 5 weeks but much worse in the last week. He reports his diffuse joint pains mostly in the hands and knees have significantly improved somehow on the last month. This is why he was taking meloxicam, but now feels like he does not need to take it. He had EGD today which showed a clean-based gastric ulcer without bleeding. I discussed the case with the crossword puzzle maker. Telemetry monitoring with normal sinus rhythm with first-degree AV block, heart rates in the 60s-90s Review of Systems All systems reviewed & are unremarkable except as noted in HPI & below Physical Exam 2 Vital Signs (Past 24 Hours): Last Vital Signs Temp 36.4 C L 08/09/18 15:38 Pulse 72 08/09/18 15:38 Resp 24 08/09/18 15:38 BP 121/59 L 08/09/18 15:38 Pulse Ox 92 08/09/18 15:38 Constitutional: WD/WN, vitals as above + morbidly obese Eyes: PERRL, conjunctivae normal, anicteric sclerae ENMT: Ears: no hearing impairment Neck: trachea midline, no thyromegaly Respiratory: normal respiratory effort, lungs clear to auscultation (Although due to body habitus, breath sounds are quite distant) Cardiovascular: Rate/Rhythm: regular rate and regular rhythm Heart Sounds: no murmur Extremities: + edema (Left greater than right 1+ pitting edema with chronic venous stasis changes of the legs bilaterally) Gastrointestinal (Abdomen): normal bowel sounds, soft, nontender, no hepatosplenomegaly (Morbidly obese abdomen) Musculoskeletal: Extremities: + clubbing (In all fingertips) and + hand abnormality (He has some swelling in the hands, no synovitis or tenderness to palpation over hand and finger joints) Skin: no rashes, warm and dry Neurologic: moves all extremities and awake; no focal motor deficits Psychiatric: A+Ox3, euthymic affect Results & Data Laboratory Results 08/09/18 08/09/18 08/09/18 Range/Units 08:56 08:56 06:19 WBC (4.8-10.8) K/uL RBC (4.7-6.1) M/uL Hgb (14.0-18.0) g/dL Hct (42-52) % MCV (80-100) fL MCH (25-34) pg MCHC (32-36) g/dL RDW Std Deviation (36.4-46.3) fL RDW Coeff of Randy (11.5-14.5) % Plt Count (130-400) K/uL MPV (7.4-10.4) fL Absolute Nucleated RBC (0-0) K/uL Nucleated RBC % (auto) % PT 23.1 H (9.0-12.0) Seconds INR 2.4 H (0.9-1.1) Sodium 141 (136-145) mmol/L Potassium 4.4 D (3.5-5.1) mmol/L Chloride 110 H (98-107) mmol/L Carbon Dioxide 27 (21-32) mmol/L Anion Gap 5.0 (3-11) BUN 11 (7-18) mg/dl Creatinine 0.95 (0.6-1.4) mg/dl Est Cr Clr Drug Dosing 170.4 ml/min Est GFR ( Amer) 105.5 Est GFR (Non-Af Amer) 91.0 BUN/Creatinine Ratio 11.5 (10-20) Glucose 107 H (70-99) mg/dl Calcium 8.8 (8.5-10.1) mg/dl Iron 27 L (35-175) mcg/dl TIBC 459 H (250-450) mcg/dl Blood Type Antibody Screen Crossmatch 08/09/18 08/08/18 Range/Units 06:19 10:34 WBC 5.60 (4.8-10.8) K/uL RBC 2.74 L (4.7-6.1) M/uL Hgb 7.5 L (14.0-18.0) g/dL Hct 23.4 L (42-52) % MCV 85.4 (80-100) fL MCH 27.4 (25-34) pg MCHC 32.1 (32-36) g/dL RDW Std Deviation 48.9 H (36.4-46.3) fL RDW Coeff of Randy 15.8 H (11.5-14.5) % Plt Count 233 (130-400) K/uL MPV 10.3 (7.4-10.4) fL Absolute Nucleated RBC 0.05 H (0-0) K/uL Nucleated RBC % (auto) 0.9 % PT (9.0-12.0) Seconds INR (0.9-1.1) Sodium (136-145) mmol/L Potassium (3.5-5.1) mmol/L Chloride (98-107) mmol/L Carbon Dioxide (21-32) mmol/L Anion Gap (3-11) BUN (7-18) mg/dl Creatinine (0.6-1.4) mg/dl Est Cr Clr Drug Dosing ml/min Est GFR ( Amer) Est GFR (Non-Af Amer) BUN/Creatinine Ratio (10-20) Glucose (70-99) mg/dl Calcium (8.5-10.1) mg/dl Iron (35-175) mcg/dl TIBC (250-450) mcg/dl Blood Type B Positive Antibody Screen NEGATIVE Crossmatch See Detail Diagnostic Findings EGD with: - Normal esophagus. - Non-bleeding gastric ulcer with no stigmata of bleeding. Biopsied. - Normal examined duodenum. _ (1) HTN (hypertension) Hypertension type: essential hypertension Qualified Code(s): I10 - Essential (primary) hypertension
[2018-08-09] MEDS ORDERED: CeleBREX 200 MG CAP PO PRN (17:02)
[2018-08-10 06:19] LABS: Hematocrit (blood only) 27.7 % (42-52); Hemoglobin 8.6 g/dL (14.0-18.0); Mean Platelet Volume 9.7 fL (7.4-10.4); Nucleated RBC # (auto) 0.05 K/uL (0-0); Nucleated RBC % (auto) 0.8 %; Platelet Count 224 K/uL (130-400); RDW Coefficient of Variation 15.4 % (11.5-14.5); RDW Standard Deviation 48.7 fL (36.4-46.3); Red Blood Count 3.22 M/uL (4.7-6.1); White Blood Count 6.24 K/uL (4.8-10.8)
[2018-08-10 06:24] LABS: Prothrombin Time 19.8 Seconds (9.0-12.0)
[2018-08-10 06:49] LABS: BUN Creatinine Ratio 10.4 (10-20); Calcium 8.7 mg/dl (8.5-10.1); Creatinine Clr Calc Pharmacy 156.8 ml/min; Est GFR (African American) 95.7; Est GFR (Non-African American) 82.5; Potassium 3.9 mmol/L (3.5-5.1)
[2018-08-10] MEDS: SPIRONOLACTONE 25 MG TAB PO SCH (07:55)
[2018-08-10] MEDS: POTASSIUM CHLORIDE 20 MEQ TABCR PO SCH (07:55)
[2018-08-10] MEDS: FUROSEMIDE 40 MG TAB PO SCH (07:55)
[2018-08-10] MEDS: NICOTINE 21 MG/24 HR TDSY TD SCH (07:56)
[2018-08-10] MEDS ORDERED: PANTOprazole 40 MG TAB PO SCH (09:00)
--- NOTE | 2018-08-10 10:21 | Gastroenterology Progress Note ---
Date of Service August 10, 2018 Assessment & Plan (1) Acute blood loss anemia: -H/H stable at 8.7/27.5 -Continue to monitor -See gastric ulcer treatment plan (2) Melena: Resolved at present -See gastric ulcer treatment plan Present on Admission?: Yes (3) Gastric ulcer: -Patient should utilize Protonix 40 mg BID. Upon discharge, would continue this medication for 8 weeks, with subsequent follow-up in our office to discuss decreasing the dosage. -Carafate 1 gm four times daily before meals and at bedtime. -Avoid NSAIDs. Would hold Coumadin for a minimum of 4-5 days. Present on Admission?: Yes Subjective Patient is a 52 yo male with a gastric ulcer resulting in melena and anemia. His H/H is presently 8.7/27.5. He is on Protonix. He underwent an EGD on 08/09 that indicated a gastric ulcer, consistent with his history of NSAID use. He denies any abdominal pain, nausea, reflux, and reports his stools are normalizing. He is eager to be discharged. Physical Exam 2 Vital Signs (Past 24 Hours): Last Vital Signs Temp 36.6 C 08/10/18 08:10 Pulse 69 08/10/18 08:10 Resp 18 08/10/18 08:10 BP 139/72 08/10/18 08:10 Pulse Ox 96 08/10/18 08:10 Constitutional: WD/WN, vitals as above Eyes: PERRL, conjunctivae normal, anicteric sclerae Respiratory: normal respiratory effort, lungs clear to auscultation Cardiovascular: RRR, no murmur, no edema Gastrointestinal (Abdomen): normal bowel sounds, soft, nontender, no hepatosplenomegaly Musculoskeletal: no cyanosis or clubbing, extremities motor strength 5/5 Skin: no rashes, warm and dry
--- NOTE | 2018-08-10 10:49 | Anesthesiology Progress Note ---
Date of Service August 10, 2018 Anesthesia Post Procedure Vital Signs Vital Signs: Temp Pulse Pulse Pulse Resp BP BP 08/10/18 08:10 36.6 C 69 18 139/72 08/10/18 03:16 36.5 C 69 18 135/80 08/09/18 23:00 36.6 C 80 18 138/68 08/09/18 20:20 77 08/09/18 19:44 37.0 C 85 20 08/09/18 18:10 74 08/09/18 16:46 36.6 C 84 24 145/67 H 08/09/18 16:45 85 19 08/09/18 16:31 36.6 C 82 22 149/75 H 08/09/18 16:30 81 22 08/09/18 16:16 80 19 118/75 08/09/18 16:15 77 23 08/09/18 16:01 74 23 147/66 H 08/09/18 16:00 77 24 08/09/18 15:38 36.4 C L 72 24 08/09/18 14:30 36.5 C 71 18 102/60 08/09/18 14:00 36.8 C 93 H 16 112/61 08/09/18 13:45 36.8 C 82 18 126/49 L 08/09/18 13:30 36.9 C 72 18 112/59 L 08/09/18 12:50 36.7 C 83 16 08/09/18 12:03 74 18 08/09/18 11:48 76 18 08/09/18 11:33 36.0 C L 78 14 08/09/18 10:23 36.4 C L 78 78 20 139/76 BP Pulse Ox 08/10/18 08:10 96 08/10/18 03:16 94 08/09/18 23:00 94 08/09/18 20:20 08/09/18 19:44 151/55 H 95 08/09/18 18:10 08/09/18 16:46 08/09/18 16:45 08/09/18 16:31 94 08/09/18 16:30 08/09/18 16:16 08/09/18 16:15 99 08/09/18 16:01 08/09/18 16:00 08/09/18 15:38 121/59 L 92 08/09/18 14:30 98 08/09/18 14:00 98 08/09/18 13:45 98 08/09/18 13:30 98 08/09/18 12:50 120/45 L 97 08/09/18 12:03 129/57 L 98 08/09/18 11:48 114/70 97 08/09/18 11:33 134/66 94 08/09/18 10:23 98 Pain Intensity Abdomen: Pain Intensity: 3 Notes Mental Status: alert / awake / arousable and participated in evaluation Nausea / Vomiting: adequately controlled Pain: adequately controlled Airway Patency, RR, SpO2: stable & adequate BP & HR: stable & adequate Hydration State: stable & adequate
[2018-08-10] MEDS ORDERED: SUCRALFATE 1 GM/10 ML UDC PO SCH (13:00)
--- NOTE | 2018-08-11 00:14 | Discharge Summary ---
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 He reported chronic meloxicam therapy for generalized arthritic complaints especially of the knees. He was dyspneic on the morning of admission while at work and was also nauseous. He reported feeling lightheaded as well. Coworkers told him he looked as white as a sheet. Patient was found to have hemoglobin of 6 in the emergency department. Principal Diagnosis acute blood loss anemia 2nd to gastric ulcer Discharge Exam Constitutional + morbidly obese; no acute distress ENMT external ear and nose normal, oropharynx normal Respiratory normal respiratory effort, lungs clear to auscultation Cardiovascular Rate/Rhythm: regular rate and regular rhythm Heart Sounds: normal S1 and normal S2 Vessels: posterior tibial pulses present and dorsalis pedis pulses present; no JVD Extremities: + edema (b/l legs, much worse in the left leg) Gastrointestinal (Abdomen) normal bowel sounds, soft, nontender, no hepatosplenomegaly Skin + pallor venous stasis changes primarily on the left cj Psychiatric A+Ox3, euthymic affect Discharge Data Allergies Allergy/AdvReac Type Severity Reaction Status Date / Time No Known Allergies Allergy Unknown Verified 08/08/18 10:13 Consultations gastroenterology - Kody Fowler DO Procedures Performed 1. PRBCs x 4 units 2. EGD with Biopsy - Kody Fowler, DO * 5mm non-bleeding cratered gastric ulcer * normal esophagus and normal duodenum Hospital Course (1) Acute blood loss anemia: 2nd to gastric ulcer. Gastric ulcer was likely due to chronic NSAID use in the setting of coumadin therapy. Presenting hemoglobin was 6, improving to 8.6 at time of discharge. He received 4 units of PRBCs in total. He was treated with PPI drip initially, then transitioned to oral PPI twice a day and carafate ac/hs. He will take protonix 40mg BID x 2 months, then possibly once daily thereafter - to be determined by gastroenterology. A prescription for ac/hs carafate for 10 days was also provided at discharge. Recommend repeat CBC at time of hospital follow-up to ensure stability. He was asked to take ferrous sulfate BID for at least 3 months, possibly longer , depending on his response. (2) Upper GI bleed: 2nd to gastric ulcer. See "acute blood loss anemia" above. (3) Gastric ulcer: Likely 2nd to chronic NSAID use. s/p biopsy during his EGD with results pending at time of discharge. Recommend PCP follow-up within 1 week of discharge and GI follow-up in 2 months. (4) History of DVT (deep vein thrombosis): Recurrent, at least 2 episodes -- left leg. Coumadin was held during this stay because of his acute bleed. INR on day of discharge was 2. He was advised to hold the coumadin for an additional 4 days post-discharge. If CBC is stable and he has no symptoms/signs of recurrent bleeding his coumadin can then be resumed 4-5 days post-discharge. (5) JAMILA treated with BiPAP: (6) Arthritis: Advised to stop meloxicam and all NSAID use. He was counseled to take tylenol prn for now. Defer management to his PCP. (7) HTN (hypertension): BPs were initially low or low-normal on day of presentation. BPs improved following PRBCs. He will resume his normal BP medication regimen after discharge. (8) Morbid obesity: BMI 57 (9) Chest tightness: The patient reported mild episodes of chest tightness in the days leading up to this admission. This, of course, was in the setting of his severe anemia. He has a very strong family history of CAD with his paternal grandfather, father , and brother all having had CAD. I recommended he speak with his PCP about obtaining an outpatient stress test in the near future to address this symptom. Total Time Total Time Spent Total Time Spent (In Minutes): 40 Total Time Includes: Examination of the Patient, Discharge Planning and Medication Reconciliation Discharge Plan Discharge Items Patient Disposition: Home - Self-Care Reason For Visit: anemia Discharge Diagnosis: anemia due to upper gastrointestinal bleeding from a stomach ulcer; 4 units of blood given Discharge Goals: Diagnostic testing and Therapeutic intervention Activity: As commented below Activity Comment: no heavy exertional activity until you see Dr. Mendoza Non-emergency contact: Primary Care Provider and [employer] Call non-emergency contact if: you have any medication questions, your symptoms worsen and your temperature is above 100.5 Follow-up/Referrals: Kody Fowler DO [Physician] - (see Dr. Fowler or one of his physician assistants in 2 months) Pierce,Joel J, DO [Primary Care Provider] - 08/17/18 3:30 pm (Please, follow up at Dr. Mendoza's office on WednesdayAugust 17 at 3:30 pm. *If you need to change this appointment, call the office at [phone].) Diet: Heart Healthy Add Provider Instructions: From Abraham Medellin - Hospitalist - You were admitted due to weakness/fatigue and a very low hemoglobin level of 6. You had been seeing dark stools for several weeks which is blood in the stool. Ultimately you underwent an EGD (upper endoscopy) which showed a gastric ( stomach) ulcer. This is the cause of your recent dark stools, anemia, and GI bleeding. Your hemoglobin is now up to 8.6 after receiving 4 units of blood. There have been no further signs of GI bleeding. At this time we recommend - 1. pantoprazole 40mg twice a day for 2 months (per the GI team's recommendation ). The GI team may recommend you stay on this medication longer possibly at a lower dose. 2. sucralfate 1gm four times daily for 10 days. Take 30 minutes before meals and at bedtime. 3. ferrous sulfate (iron) supplementation. Take 325mg twice a day for 3 months. This medication may make you constipated. It also causes dark stool. 4. Diet - for the next 7-10 days avoid -- * alcohol * excessive consumption of caffeinated beverages including coffee, tea, soda, etc. * fried foods * spicy foods * acidic foods such as spaghetti sauce, salsa, hot sauces, pizza, etc. 5. STOP ALL FORMS of anti-inflammatory use including meloxicam, ibuprofen, motrin, naprosyn, alleve, etc. Also avoid aspirin for now. 6. For your arthritis pains you can take [id number] tylenol up to 1000mg at a time every 6 to 8 hours for a total of 3000mg in 24 hours. 7. HOLD your coumadin (warfarin) for the next 5 days. Day #1 was 08/09/2018. Your INR today is 2. Dr. Mendoza will continue to manage your coumadin as previous. You will resume your coumadin in 5 days unless otherwise directed by Dr. Mendoza. 8. Follow-up - * see Dr. Mendoza within 5-7 days * see Dr. Fowler within 2 months 9. Additional recommendations - * please speak to Dr. Mendoza about obtaining a stress test in light of your recent chest tightness as well as your strong family history of heart disease 10. Return to [facility] if - * you start to see tarry, black stools again * you have dizziness or lightheadedness * you have chest pain or tightness * you have shortness of breath * any other concerns Prescriptions: New pantoprazole 40 mg Tablet,Delayed Release (Dr/Ec) 40 mg PO BID Qty: 60 RF: 1 ferrous sulfate 325 mg (65 mg iron) tablet 325 mg PO BID Qty: 60 RF: 2 sucralfate 1 gram tablet 1 gm PO ACHS 10 Days Qty: 40 RF: 0 Continue furosemide 40 mg tablet 40 mg PO DAILY RF: 0 potassium chloride 20 mEq tablet,ER particles/crystals 20 meq PO DAILY RF: 0 spironolactone 50 mg tablet 50 mg PO BID RF: 0 Changed acetaminophen [Tylenol Extra Strength] 500 mg Tablet 1,000 mg PO Q6H PRN (Reason: Pain) Qty: 30 RF: 0 Discontinued meloxicam 15 mg tablet 15 mg PO DAILY RF: 0 warfarin 5 mg Tablet 5 mg PO DAILY RF: 0 Visit Report Forms: My [facility] Portal Stand-Alone Forms: My [facility]/Other Patient Handouts: Bleeding Gastrointestinal Discharge Orders: Discharge Order (Routine); Ordered 08/10/18 Ordered By: Abraham Medellin Admission Data Admit Date/Time: 08/08/18 12:05 Attending Provider: Abraham Medellin Admit Provider: Duong Caban Primary Care Provider: Joel Mendoza Other Providers: Kody Fowler ; Duong Caban Service: Telemetry Other Interventions: Discharge Summary Assessment (RN) Last Done: 08/10/18 12:39 Pending Studies at Discharge: Yes Studies:: biopsy from your stomach ulcer DC Date/Time DO NOT enter until pt leaves facility: 08/10/18 13:19
== END 2018-08-10 13:19 | disposition home or self-care (01) | DRG 813 ==
LOC: ED 09:32 → 2E 12:05 → SUATTDRO 12:05 → 2E 14:47 → 2S 08-09 21:29

== ENCOUNTER 2019-02-20 09:49 | Observation (INO) ==
[2019-02-20 10:48] LABS: Basophils # (auto) 0.03 K/uL (0-0.2); Basophils % (auto) 0.4 %; Eosinophils # (auto) 0.11 K/uL (0-0.5); Eosinophils % (auto) 1.3 %; Hematocrit (blood only) 43.7 % (42-52); Hemoglobin 14.5 g/dL (14.0-18.0); Immature Granulocytes # (auto) 0.07 K/uL (0.00-0.02); Immature Granulocytes % (auto) 0.8 %; Lymphocytes # (auto) 0.97 K/uL (1.2-3.4); Lymphocytes % (auto) 11.6 %; Mean Corpuscular Hgb Conc 33.2 g/dL (32-36); Mean Corpuscular Volume 87.1 fL (80-100); Mean Platelet Volume 11.2 fL (7.4-10.4); Monocytes % (auto) 11.9 %; Platelet Count 221 K/uL (130-400); RDW Coefficient of Variation 15.2 % (11.5-14.5); RDW Standard Deviation 48.4 fL (36.4-46.3); Red Blood Count 5.02 M/uL (4.7-6.1); White Blood Count 8.38 K/uL (4.8-10.8)
[2019-02-20 11:07] LABS: Alanine Aminotransferase 23 U/L (12-78); Albumin Level 3.7 gm/dl (3.4-5.0); Aspartate Aminotransferase 17 U/L (15-37); BUN Creatinine Ratio 13.9 (10-20); Blood Urea Nitrogen 14 mg/dl (7-18); Calcium 9.7 mg/dl (8.5-10.1); Carbon Dioxide 28 mmol/L (21-32); Chloride 105 mmol/L (98-107); Est GFR (African American) 96.1; Est GFR (Non-African American) 82.9; Glucose 112 mg/dl (70-99); Potassium 3.6 mmol/L (3.5-5.1); Sodium 140 mmol/L (136-145)
[2019-02-20 11:09] LABS: Albumin Globulin Ratio 0.8 (0.9-2); Alkaline Phosphatase 69 U/L (45-117); Globulin 4.5 gm/dl (2.5-4.0); Total Protein 8.2 gm/dl (6.4-8.2)
--- NOTE | 2019-02-20 11:38 | CT Scan Report ---
ABDOMEN AND PELVIS CT WITHOUT CONTRAST CT DOSE: 4502.54 mGy.cm HISTORY: Acute right-sided flank pain Pt c/o Rt sided flank pain TECHNIQUE: Multiaxial CT images of the abdomen and pelvis were performed without contrast. A dose lo wering technique was utilized adhering to the principles of ALARA. COMPARISON STUDY: Acute abdominal series radiographs 08/08/2018. FINDINGS: Motion degraded exam. 3 mm calcified granuloma of the lateral segment right middle lobe. Mild depende nt subsegmental bibasilar atelectasis. Study is also limited secondary to patient body habitus with p ortions of the patient's anatomy outside the [id number]. Beam Castanon artifact also limits the lilliam dy. No pneumatosis or pneumoperitoneum. The imaged inferior cardiac chambers are mildly enlarged. Hepatomegaly with hepatic steatosis. No focal hepatic mass lesion identified. No evidence of cirrhosi s or ascites. Spleen is enlarged, 17.9 cm in length. The pancreas, gallbladder and adrenal glands are unremarkable. There is no biliary ductal dilation. Kidneys are within normal limits. No renal or ure teral calculi or obstructive uropathy. Urinary bladder and prostate appear unremarkable. Aorta and IV C are also within normal limits. Nonspecific prominent and mildly enlarged iliac chain lymph nodes ar e seen measuring up to 11 mm in short axis on the right. No bowel obstruction. 2.8 cm focus about the intraluminal sigmoid colon is noted on image 414 series 5 suggests of a probable stool contents. Terminal ileum is unremarkable. The appendix is dilated laureen uring up to 9 mm and fluid-filled. Mild periappendiceal inflammatory stranding. No drainable fluid co llection. Soft tissues are unremarkable. Degenerative changes of the spine, pelvis and hips. Multilevel central canal or neuroforaminal narrowing of the lumbar spine. IMPRESSION: 1. Dilated fluid-filled appendix with mild periappendiceal inflammatory stranding is suggestive of ac demetrius uncomplicated appendicitis in the appropriate clinical setting. No evidence of perforation or urmila inable fluid collection. 2. No bowel obstruction. 3. Hepatosplenomegaly with hepatic steatosis. 4. No renal or ureteral calculi or obstructive uropathy. 5. Nonspecific prominent and mildly enlarged iliac chain lymph nodes. 6. Additional findings as above. Electronically signed by: Pee Armstrong M.D. 02/20/2019 11:37 AM
[2019-02-20] MEDS ORDERED: cefOXitin 2,000 MG/60 ML BAG IV STA (11:46)
[2019-02-20 12:11] LABS: INR 3.4 (0.9-1.1); Prothrombin Time 31.9 Seconds (9.0-12.0)
[2019-02-20] MEDS ORDERED: PHYTONADIONE 10 MG in SODIUM CHLORIDE 0.9% 50 ML IV ONE (12:39)
--- NOTE | 2019-02-20 12:54 | History & Physical Report ---
Date of Service February 20, 2019 Assessment & Plan (1) Acute appendicitis with localized peritonitis: 53-year-old super obese male with acute uncomplicated appendicitis. We discussed his options to include appendectomy versus antibiotics with observation, and the patient elects for surgery. The emergency department discussed anticoagulation reversal with Dr. Verduzco, and we will give vitamin K and Kcentra. Plan for laparoscopic appendectomy, possible open The risks the procedure were discussed to include but not limited to bleeding, infection, conversion open, need for future more extensive surgery, normal appendix, damage surrounding structures, abscess, and the risk of anesthesia Vitamin K and Kcentra preoperatively, will repeat INR prior to surgery Preop antibiotics Admit for observation postop, will need Lovenox (2) Super obesity: (3) History of DVT (deep vein thrombosis): (4) DVT prophylaxis: History of Present Illness Primary Care Provider: Joel Mendoza DO 53-year-old super obese male presented to the emergency department with abdominal pain that started on Wednesday. He thought he had a muscle strain and it hurt when riding heavy equipment at work and also when bending over to tie shoes. No prior similar episodes. He reports not feeling well overall but no fevers. Normal BMs. He is on Coumadin for history of DVT and took his last dose this morning. His INR was 3.4. His BMI is 55.8. He also had a GI bleed back in August from an ulcer. He ate breakfast this morning at 5:00. Allergies Allergy/AdvReac Type Severity Reaction Status Date / Time No Known Allergies Allergy Unknown Verified 02/20/19 10:14 Home Medications Home Medications Medication Instructions Recorded Confirmed Type furosemide 40 mg PO QAM 08/08/18 02/20/19 History potassium chloride 20 meq PO QAM 08/08/18 02/20/19 History spironolactone 50 mg PO BID 08/08/18 02/20/19 History acetaminophen [Tylenol Extra 1,000 mg PO Q6H PRN #30 tab 08/10/18 02/20/19 Rx Strength] warfarin 5 mg PO 4XWK 02/20/19 02/20/19 History warfarin 10 mg PO 3XWK 02/20/19 02/20/19 History Past Med/Surg History Medical History Tobacco user History of DVT (deep vein thrombosis) JAMILA treated with BiPAP HTN (hypertension) (Acute) Lower extremity edema (Acute) Morbid obesity (Acute) Acute blood loss anemia Arthritis DVT (deep venous thrombosis) Morbid obesity Obstructive sleep apnea Family History Unknown Hypertension Social History Preferred Language: Lib[place] Beliefs That Will Affect Care: None marital status: Current Living Situation: Spouse current occupational status: employed Feels Safe at Home: Yes Smoking Status: Never smoker Tobacco Type: smokeless tobacco Second Hand Exposure: No Hx Alcohol Use: No Hx Substance Use: No Review of Systems Review of Systems: All systems reviewed & are unremarkable except as noted in HPI & below Physical Exam Constitutional: WD/WN, vitals as above + obese Eyes: PERRL, conjunctivae normal, anicteric sclerae ENMT: external ear and nose normal, oropharynx normal Neck: trachea midline, no thyromegaly Respiratory: normal respiratory effort, lungs clear to auscultation Cardiovascular: RRR, no murmur, no edema Gastrointestinal (Abdomen): Percussion/Palpation: + abdomen tender (Tender to palpation in the right lower quadrant at McBurney's point with localized guarding.) and abdomen soft Musculoskeletal: no cyanosis or clubbing, extremities motor strength 5/5 Skin: no rashes, warm and dry Neurologic: patellar DTR's 2+ bilat, sensation intact Psychiatric: A+Ox3, euthymic affect Lymphatic: no cervical or axillary lymphadenopathy Results & Data Vital Signs (Past 12 Hours) Vital Signs Temp Pulse Pulse Resp BP BP Pulse Ox 02/20/19 11:31 82 82 20 161/97 H 95 02/20/19 09:55 36.8 C 92 H 22 166/69 H 97 Laboratory Results Laboratory Results - last 24 hr 02/20/19 02/20/19 02/20/19 10:36 10:36 10:36 WBC 8.38 RBC 5.02 Hgb 14.5 Hct 43.7 MCV 87.1 MCH 28.9 MCHC 33.2 RDW Std Deviation 48.4 H RDW Coeff of Randy 15.2 H Plt Count 221 MPV 11.2 H Immature Gran % (Auto) 0.8 Neut % (Auto) 74.0 Lymph % (Auto) 11.6 Aurora % (Auto) 11.9 Eos % (Auto) 1.3 Baso % (Auto) 0.4 Immature Gran # (Auto) 0.07 H Neut # (Auto) 6.20 Lymph # (Auto) 0.97 L Aurora # (Auto) 1.00 H Eos # (Auto) 0.11 Baso # (Auto) 0.03 PT 31.9 H INR 3.4 H Sodium 140 Potassium 3.6 Chloride 105 Carbon Dioxide 28 Anion Gap 8.0 BUN 14 Creatinine 1.02 Est Cr Clr Drug Dosing Not Reportable Est GFR ( Amer) 96.1 Est GFR (Non-Af Amer) 82.9 BUN/Creatinine Ratio 13.9 Glucose 112 H Calcium 9.7 Total Bilirubin 1.0 AST 17 ALT 23 Alkaline Phosphatase 69 Total Protein 8.2 Albumin 3.7 Globulin 4.5 H Albumin/Globulin Ratio 0.8 L Lipase 182 Diagnostic Findings ABDOMEN AND PELVIS CT WITHOUT CONTRAST CT DOSE: 4502.54 mGy.cm HISTORY: Acute right-sided flank pain Pt c/o Rt sided flank pain TECHNIQUE: Multiaxial CT images of the abdomen and pelvis were performed without contrast. A dose lowering technique was utilized adhering to the principles of ALARA. COMPARISON STUDY: Acute abdominal series radiographs 08/08/2018. FINDINGS: Motion degraded exam. 3 mm calcified granuloma of the lateral segment right middle lobe. Mild dependent subsegmental bibasilar atelectasis. Study is also limited secondary to patient body habitus with portions of the patient's anatomy outside the [id number]. Beam Castanon artifact also limits the study. No pneumatosis or pneumoperitoneum. The imaged inferior cardiac chambers are mildly enlarged. Hepatomegaly with hepatic steatosis. No focal hepatic mass lesion identified. No evidence of cirrhosis or ascites. Spleen is enlarged, 17.9 cm in length. The pancreas, gallbladder and adrenal glands are unremarkable. There is no biliary ductal dilation. Kidneys are within normal limits. No renal or ureteral calculi or obstructive uropathy. Urinary bladder and prostate appear unremarkable. Aorta and IVC are also within normal limits. Nonspecific prominent and mildly enlarged iliac chain lymph nodes are seen measuring up to 11 mm in short axis on the right. No bowel obstruction. 2.8 cm focus about the intraluminal sigmoid colon is noted on image 414 series 5 suggests of a probable stool contents. Terminal ileum is unremarkable. The appendix is dilated measuring up to 9 mm and fluid-filled. Mild periappendiceal inflammatory stranding. No drainable fluid collection. Soft tissues are unremarkable. Degenerative changes of the spine, pelvis and hips. Multilevel central canal or neuroforaminal narrowing of the lumbar spine. IMPRESSION: 1. Dilated fluid-filled appendix with mild periappendiceal inflammatory stranding is suggestive of acute uncomplicated appendicitis in the appropriate clinical setting. No evidence of perforation or drainable fluid collection. 2. No bowel obstruction. 3. Hepatosplenomegaly with hepatic steatosis. 4. No renal or ureteral calculi or obstructive uropathy. 5. Nonspecific prominent and mildly enlarged iliac chain lymph nodes. 6. Additional findings as above. Electronically signed by: Pee Armstrong M.D. 02/20/2019 11:37 AM
[2019-02-20] MEDS ORDERED: PROTHROMBIN COMP CONC- KCENTRA 2,500 UNITS in SYRINGE 0 ML IV ONE (13:00)
[2019-02-20] MEDS ORDERED: NEOSTIGMINE METHYLSULFATE 5 MG/5 ML SYR ONE (13:21)
[2019-02-20] MEDS ORDERED: GLYCOPYRROLATE 0.2 MG/ML VIAL ONE ×2 (13:21→16:16)
[2019-02-20] MEDS ORDERED: ePHEDrine sulfate 50 MG/ML SYR ONE (13:21)
[2019-02-20] MEDS ORDERED: KETOROLAC 30 MG/ML VIAL ONE (13:21)
[2019-02-20] MEDS ORDERED: ONDANSETRON INJ 2 MG/ML 2 ML VIAL ONE (13:21)
[2019-02-20] MEDS ORDERED: PHENYLEPHRINE 100MCG/ML 5ML SYR ONE (13:21)
[2019-02-20] MEDS ORDERED: ROCURONIUM BROMIDE 10 MG/ML 5 ML VIAL ONE (13:21)
[2019-02-20] MEDS ORDERED: PROPOFOL IV EMULSION 10 MG/ML 20 ML VIAL IV ONE (13:21)
[2019-02-20] MEDS ORDERED: fentaNYL citrate 100 MCG/2 ML VIAL ONE (13:21)
[2019-02-20] MEDS ORDERED: DEXAMETHASONE SOD INJ 4 MG/ML VIAL ONE ×2 (13:21→15:46)
[2019-02-20] MEDS ORDERED: LIDOCAINE HCL 2% 2 ML VIAL/AMP(20MG/ML) INFIL ONE (13:21)
[2019-02-20] MEDS ORDERED: MIDAZOLAM HCL 1 MG/ML 2ML VIAL ONE (13:21)
--- NOTE | 2019-02-20 14:11 | Anesthesiology Consultation ---
Date of Service February 20, 2019 Assessment & Plan (1) Encounter for pre-operative examination: Chart Review Chart Review: Acceptable Risk for Surgery and Patient NOT seen in Pre Admission Testing Consults Requested none History Surgery Operation Date: 02/20/19 13:35 Proposed Procedures p Laparoscopic Appendectomy - Eduardo Burgos DO, FACS Height/Weight Height: 6 ft 4 in Weight: 208 kg Allergies Allergy/AdvReac Type Severity Reaction Status Date / Time No Known Allergies Allergy Unknown Verified 02/20/19 10:14 Medications Home Medications Medication Instructions Recorded Confirmed Last Taken furosemide 40 mg PO QAM 08/08/18 02/20/19 02/20/19 potassium chloride 20 meq PO QAM 08/08/18 02/20/19 02/20/19 spironolactone 50 mg PO BID 08/08/18 02/20/19 02/20/19 acetaminophen [Tylenol Extra 1,000 mg PO Q6H PRN #30 tab 08/10/18 02/20/19 02/20/19 05:45 Strength] 2000mg warfarin 5 mg PO 4XWK 02/20/19 02/20/19 02/19/19 warfarin 10 mg PO 3XWK 02/20/19 02/20/19 02/20/19 NPO Date Last Intake of Fluids: 02/20/19 Time Last Intake of Fluids: 05:30 Date Last Intake of Solids: 02/20/19 Time Last Intake of Solids: 05:30 Past Medical History Medical History Tobacco user History of DVT (deep vein thrombosis) JAMILA treated with BiPAP HTN (hypertension) (Acute) Lower extremity edema (Acute) Morbid obesity (Acute) Acute blood loss anemia Arthritis DVT (deep venous thrombosis) Morbid obesity Obstructive sleep apnea Past Family History Family History Unknown Hypertension Social History Smoking Status: Never smoker tobacco type: smokeless tobacco Hx Alcohol Use: No alcohol intake frequency: holidays/special occasions only Hx Substance Use: No Physical Exam Vital Signs Last Vital Signs Temp 36.8 C 02/20/19 09:55 Pulse 82 02/20/19 11:31 Resp 20 02/20/19 11:31 BP 161/97 H 02/20/19 11:31 Pulse Ox 95 02/20/19 11:31 Testing Laboratory Results 02/20/19 10:36 02/20/19 10:36 PT 31.9 Seconds (9.0-12.0) H 02/20/19 10:36 INR 3.4 (0.9-1.1) H 02/20/19 10:36 Electrocardiogram Date: 08/08/18 Findings: + NSR @ (86 bpm)
[2019-02-20 14:41] LABS: INR 1.4 (0.9-1.1)
[2019-02-20] MEDS ORDERED: ATROPINE SULFATE 0.1 MG/ML 10ML SYR IV PRN (14:56)
[2019-02-20] MEDS ORDERED: ePHEDrine sulfate 50 MG/ML AMP IV PRN (14:56)
[2019-02-20] MEDS ORDERED: fentaNYL citrate 100 MCG/2 ML VIAL IV PRN (14:56)
[2019-02-20] MEDS ORDERED: BUPIVACAINE 0.5 % 5 MG/1 ML MPF 30ML VIAL ONE (14:56)
[2019-02-20] MEDS ORDERED: ONDANSETRON INJ 2 MG/ML 2 ML VIAL IV PRN ×2 (14:56→17:32)
--- NOTE | 2019-02-20 14:57 | Emergency Department Note ---
Entered by Henrietta Elias acting as a scribe for Abad Sweet MD History of Present Illness General Chief complaint: Abdominal Pain Stated complaint: RIGHT LOWER ABDOMINAL PAIN Time Seen by Provider: 02/20/19 10:03 Source: patient History of Present Illness Provider complaint: abdominal pain Onset (ago): day(s) 1 Location: abdomen and right Radiation: back and other (groin) Pain Consistency: + now resolved Maximum Pain Intensity: 6 Exacerbated By: + movement The patient is a 53 year old male who presents to the Emergency Room with complaints of right sided abdominal pain that started yesterday and has now lessened. The patient reports that this pain radiated to his groin and right side of his back. He notes that the pain worsens with movement. Home Medications Home Medications Medication Instructions Recorded Confirmed Type furosemide 40 mg PO QAM 08/08/18 02/20/19 History potassium chloride 20 meq PO QAM 08/08/18 02/20/19 History spironolactone 50 mg PO BID 08/08/18 02/20/19 History acetaminophen [Tylenol Extra 1,000 mg PO Q6H PRN #30 tab 08/10/18 02/20/19 Rx Strength] warfarin 5 mg PO 4XWK 02/20/19 02/20/19 History warfarin 10 mg PO 3XWK 02/20/19 02/20/19 History oxycodone-acetaminophen [Percocet] 1 - 2 tab PO Q4H PRN #10 tab 02/21/19 Rx Allergies Allergy/AdvReac Type Severity Reaction Status Date / Time No Known Allergies Allergy Unknown Verified 02/20/19 15:07 Past Med/Surg History Medical History Tobacco user History of DVT (deep vein thrombosis) JAMILA treated with BiPAP HTN (hypertension) (Acute) Lower extremity edema (Acute) Morbid obesity (Acute) Acute blood loss anemia Arthritis DVT (deep venous thrombosis) Morbid obesity Obstructive sleep apnea Family History Unknown Hypertension Social History Preferred Language: Senegalese Communication Ability: Effective Office Rental Clerk Required: No Beliefs That Will Affect Care: None marital status: Current Living Situation: Spouse current occupational status: employed Other Information That Helps Us Care for You: No Feels Safe at Home: Yes Safety Concerns: Feels Safe At This Time Smoking Status: Never smoker Tobacco Type: smokeless tobacco Do You Dip or Chew Tobacco: Yes Second Hand Exposure: No Hx Alcohol Use: Yes Alcohol type: hard liquor Hx Substance Use: No Review of Systems See HPI for pertinent positives & negatives. and A total of 10 systems reviewed and were otherwise negative Physical Exam Vital Signs Vital Signs - 24 hr 02/20/19 09:55 02/20/19 11:31 02/20/19 12:30 Temperature 36.8 C Temperature Source Oral Sepsis Recent Fever Within 48 Hours No Sepsis New/Unexplained Change in Mental Status No Sepsis Action Taken by Nursing No Action Required Pulse Rate 92 H 82 Pulse Rate [Apical] 82 80 Pulse Rhythm Regular Respiratory Rate 22 20 20 Respiratory Effort / Characteristics Non-Labored Non-Labored Spontaneous Non-Labored Spontaneous Respiratory Depth Normal Normal Normal Respiratory Pattern Regular Regular Blood Pressure 166/69 H Blood Pressure [Right Arm] 161/97 H 161/97 H Blood Pressure Mean 101 Blood Pressure Mean [Right Arm] 118 118 Blood Pressure Position [Right Arm] Sitting Sitting Pulse Oximetry 97 95 95 Oxygen Delivery Method Room Air Room Air 02/20/19 13:30 02/20/19 14:54 Temperature Temperature Source Sepsis Recent Fever Within 48 Hours Sepsis New/Unexplained Change in Mental Status Sepsis Action Taken by Nursing Pulse Rate Pulse Rate [Apical] 82 80 Pulse Rhythm Respiratory Rate 20 20 Respiratory Effort / Characteristics Non-Labored Spontaneous Non-Labored Spontaneous Respiratory Depth Normal Normal Respiratory Pattern Regular Regular Blood Pressure Blood Pressure [Right Arm] 162/97 H 160/92 H Blood Pressure Mean Blood Pressure Mean [Right Arm] 118 114 Blood Pressure Position [Right Arm] Sitting Sitting Pulse Oximetry 95 95 Oxygen Delivery Method Room Air Room Air GENERAL: Awake, alert, well-appearing, in no acute distress HENT: Normocephalic, atraumatic. Oropharynx unremarkable. EYES: Normal conjunctiva. Sclera non-icteric. NECK: Supple. No nuchal rigidity. FROM. No JVD. RESPIRATORY: Clear to auscultation. CARDIAC: Regular rate, normal rhythm. Extremities warm and well perfused. Pulses equal. ABDOMEN: Soft, non-distended. Mild right lower quadrant tenderness to palpation. No rebound or guarding. No masses. RECTAL: Deferred. MUSCULOSKELETAL: Chest examination reveals no tenderness. The back is symmetrical on inspection without obvious abnormality. There is no CVA tenderness to palpation. No joint edema. LOWER EXTREMITIES: Calves are equal size bilaterally and non-tender. No edema. No discoloration. NEURO: Normal sensorium. No sensory or motor deficits noted. SKIN: No rash or jaundice noted. Course 1008: The patient was seen and evaluated by the Resident Physician, Siri Cleveland, at this time. History and physical were discussed with me. 1039: The patient was evaluated in room B3B, and a complete history and physical examination were performed. 1150: I discussed the patient's case with Gavino Ewing- [facility] General Surgery, Dr. Burgos- [facility] General Surgery will evaluate the patient. 1156: I reevaluated the patient and updated him on his results. Administered Medications Discontinued Medications Bupivacaine HCl (Marcaine 0.5% Mpf) Confirm Administered Dose 30 ml .ROUTE .STK- MED ONE Stop: 02/20/19 14:57 Last Admin: 02/20/19 16:20 Dose: 12 ml Documented by: [id number] Enoxaparin Sodium (Lovenox) 60 mg SQ ONE ONE Stop: 02/21/19 11:01 Last Admin: 02/21/19 11:13 Dose: 60 mg Documented by: [id number] Cefoxitin Sodium (Mefoxin) 2,000 mg in 60 mls @ 100 mls/hr IV NOW STA Stop: 02/20/19 12:21 Last Infusion: 02/20/19 12:43 Dose: 0 mls/hr Documented by: [id number] Admin: 02/20/19 12:07 Dose: 100 mls/hr Documented by: [id number] Phytonadione 10 mg/ Sodium (Chloride) 51 mls @ 102 mls/hr IV ONE ONE Stop: 02/20/19 13:08 Last Infusion: 02/20/19 13:53 Dose: 0 mls/hr Documented by: [id number] Admin: 02/20/19 13:09 Dose: 102 mls/hr Documented by: [id number] Prothrombin Complex Concent ( (Human) 2,500 units/ Syringe) 100 mls @ 10 mls/min IV TODAY@1300 ONE; Protocol Stop: 02/20/19 13:09 Last Admin: 02/20/19 12:57 Dose: 10 mls/min Documented by: [id number] Cefoxitin Sodium 1,000 mg/ (Dextrose) 60 mls @ 100 mls/hr IV ONCE RADHA Stop: 02/21/19 16:29 Last Infusion: 02/20/19 19:20 Dose: 0 mls/hr Documented by: [id number] Admin: 02/20/19 15:53 Dose: 100 mls/hr Documented by: [id number] Cefoxitin Sodium 2,000 mg/ (Dextrose) 60 mls @ 100 mls/hr IV Q6H RADHA Stop: 02/21/19 21:59 Last Infusion: 02/21/19 04:17 Dose: 0 mls/hr Documented by: [id number] Admin: 02/21/19 03:41 Dose: 100 mls/hr Documented by: [id number] Infusion: 02/20/19 22:36 Dose: 0 mls/hr Documented by: [id number] Admin: 02/20/19 21:39 Dose: 100 mls/hr Documented by: [id number] Lactated Ringer's (Lr) 1,000 mls @ 125 mls/hr IV .Q8H RADHA Stop: 03/22/19 17:31 Last Infusion: 02/21/19 10:24 Dose: 0 mls/hr Documented by: [id number] Admin: 02/21/19 07:30 Dose: 125 mls/hr Documented by: [id number] Infusion: 02/21/19 07:30 Dose: 125 mls/hr Documented by: [id number] Infusion: 02/21/19 05:03 Dose: 125 mls/hr Documented by: [id number] Infusion: 02/21/19 04:17 Dose: 125 mls/hr Documented by: [id number] Infusion: 02/21/19 03:41 Dose: 0 mls/hr Documented by: [id number] Admin: 02/20/19 23:44 Dose: 125 mls/hr Documented by: [id number] Infusion: 02/20/19 23:44 Dose: 125 mls/hr Documented by: [id number] Admin: 02/20/19 18:19 Dose: 125 mls/hr Documented by: [id number] Menthol (Nice) 1 jules BUCCAL PRN PRN PRN Reason: Sore Throat Stop: 03/22/19 18:56 Last Admin: 02/20/19 19:23 Dose: 1 jules Documented by: [id number] Medical Decision Making Differential Diagnosis Differential diagnosis: Etiologies such as appendicitis, diverticulitis, PUD, biliary pathology, UTI, pancreatitis, obstruction, mesenteric ischemia, aortic pathology, infections, inflammatory bowel disease, renal colic, as well as others were entertained. Medical Records Attestation: I reviewed the patient's medical records. Home Medications Current Medication List: was personally reviewed by me Laboratory Data Attestation: I reviewed the patient's lab results. Result diagrams: 02/21/19 08:31 02/21/19 08:31 Lab Results 02/20/19 02/20/19 02/20/19 Range/Units 10:36 10:36 10:36 WBC 8.38 (4.8-10.8) K/uL RBC 5.02 (4.7-6.1) M/uL Hgb 14.5 (14.0-18.0) g/dL Hct 43.7 (42-52) % MCV 87.1 (80-100) fL MCH 28.9 (25-34) pg MCHC 33.2 (32-36) g/dL RDW Std Deviation 48.4 H (36.4-46.3) fL RDW Coeff of Randy 15.2 H (11.5-14.5) % Plt Count 221 (130-400) K/uL MPV 11.2 H (7.4-10.4) fL Immature Gran % (Auto) 0.8 % Neut % (Auto) 74.0 % Lymph % (Auto) 11.6 % [place] % (Auto) 11.9 % Eos % (Auto) 1.3 % Baso % (Auto) 0.4 % Immature Gran # (Auto) 0.07 H (0.00-0.02) K/uL Neut # (Auto) 6.20 (1.4-6.5) K/uL Lymph # (Auto) 0.97 L (1.2-3.4) K/uL [place] # (Auto) 1.00 H (0.11-0.59) K/uL Eos # (Auto) 0.11 (0-0.5) K/uL Baso # (Auto) 0.03 (0-0.2) K/uL PT 31.9 H (9.0-12.0) Seconds INR 3.4 H (0.9-1.1) Sodium 140 (136-145) mmol/L Potassium 3.6 (3.5-5.1) mmol/L Chloride 105 (98-107) mmol/L Carbon Dioxide 28 (21-32) mmol/L Anion Gap 8.0 (3-11) BUN 14 (7-18) mg/dl Creatinine 1.02 (0.6-1.4) mg/dl Est Cr Clr Drug Dosing Not Reportable Est GFR ( Amer) 96.1 Est GFR (Non-Af Amer) 82.9 BUN/Creatinine Ratio 13.9 (10-20) Glucose 112 H (70-99) mg/dl Calcium 9.7 (8.5-10.1) mg/dl Total Bilirubin 1.0 (0.2-1) mg/dl AST 17 (15-37) U/L ALT 23 (12-78) U/L Alkaline Phosphatase 69 (45-117) U/L Total Protein 8.2 (6.4-8.2) gm/dl Albumin 3.7 (3.4-5.0) gm/dl Globulin 4.5 H (2.5-4.0) gm/dl Albumin/Globulin Ratio 0.8 L (0.9-2) Lipase 182 (73-393) U/L Urine Color Urine Appearance (Clear) Urine pH (4.5-7.5) Ur Specific [place] (1.000-1.030) Urine Protein (Negative) Urine Glucose (UA) (Negative) Urine Ketones (Negative) Urine Blood (Negative) Urine Nitrite (Negative) Urine Bilirubin (Negative) Urine Urobilinogen (Negative) Ur Leukocyte Esterase (Negative) Urine WBC (Auto) (0-5) /hpf Urine RBC (Auto) (0-4) /hpf U Hyaline Cast (Auto) (0-5) /lpf U Epithel Cells (Auto) (0-5) /lpf Urine Bacteria (Auto) (Negative) 02/20/19 02/20/19 Range/Units 14:17 14:35 WBC (4.8-10.8) K/uL RBC (4.7-6.1) M/uL Hgb (14.0-18.0) g/dL Hct (42-52) % MCV (80-100) fL MCH (25-34) pg MCHC (32-36) g/dL RDW Std Deviation (36.4-46.3) fL RDW Coeff of Randy (11.5-14.5) % Plt Count (130-400) K/uL MPV (7.4-10.4) fL Immature Gran % (Auto) % Neut % (Auto) % Lymph % (Auto) % [place] % (Auto) % Eos % (Auto) % Baso % (Auto) % Immature Gran # (Auto) (0.00-0.02) K/uL Neut # (Auto) (1.4-6.5) K/uL Lymph # (Auto) (1.2-3.4) K/uL [place] # (Auto) (0.11-0.59) K/uL Eos # (Auto) (0-0.5) K/uL Baso # (Auto) (0-0.2) K/uL PT 14.0 H (9.0-12.0) Seconds INR 1.4 H (0.9-1.1) Sodium (136-145) mmol/L Potassium (3.5-5.1) mmol/L Chloride (98-107) mmol/L Carbon Dioxide (21-32) mmol/L Anion Gap (3-11) BUN (7-18) mg/dl Creatinine (0.6-1.4) mg/dl Est Cr Clr Drug Dosing Est GFR ( Amer) Est GFR (Non-Af Amer) BUN/Creatinine Ratio (10-20) Glucose (70-99) mg/dl Calcium (8.5-10.1) mg/dl Total Bilirubin (0.2-1) mg/dl AST (15-37) U/L ALT (12-78) U/L Alkaline Phosphatase (45-117) U/L Total Protein (6.4-8.2) gm/dl Albumin (3.4-5.0) gm/dl Globulin (2.5-4.0) gm/dl Albumin/Globulin Ratio (0.9-2) Lipase (73-393) U/L Urine Color Yellow Urine Appearance Clear (Clear) Urine pH 6.5 (4.5-7.5) Ur Specific [place] 1.022 (1.000-1.030) Urine Protein 2+ H (Negative) Urine Glucose (UA) Negative (Negative) Urine Ketones Negative (Negative) Urine Blood Negative (Negative) Urine Nitrite Negative (Negative) Urine Bilirubin Negative (Negative) Urine Urobilinogen Negative (Negative) Ur Leukocyte Esterase Negative (Negative) Urine WBC (Auto) 1-5 (0-5) /hpf Urine RBC (Auto) 0-4 (0-4) /hpf U Hyaline Cast (Auto) 1-5 (0-5) /lpf U Epithel Cells (Auto) 10-20 H (0-5) /lpf Urine Bacteria (Auto) Negative (Negative) Imaging Data Radiologist's Impression: Radiology results as stated below per my review and the radiologist's interpretation: ABDOMEN AND PELVIS CT WITHOUT CONTRAST CT DOSE: 4502.54 mGy.cm HISTORY: Acute right-sided flank pain Pt c/o Rt sided flank pain TECHNIQUE: Multiaxial CT images of the abdomen and pelvis were performed without contrast. A dose lowering technique was utilized adhering to the principles of ALARA. COMPARISON STUDY: Acute abdominal series radiographs 08/08/2018. FINDINGS: Motion degraded exam. 3 mm calcified granuloma of the lateral segment right middle lobe. Mild dependent subsegmental bibasilar atelectasis. Study is also limited secondary to patient body habitus with portions of the patient's anatomy outside the [id number]. Beam Castanon artifact also limits the study. No pneumatosis or pneumoperitoneum. The imaged inferior cardiac chambers are mildly enlarged. Hepatomegaly with hepatic steatosis. No focal hepatic mass lesion identified. No evidence of cirrhosis or ascites. Spleen is enlarged, 17.9 cm in length. The pancreas, gallbladder and adrenal glands are unremarkable. There is no biliary ductal dilation. Kidneys are within normal limits. No renal or ureteral calculi or obstructive uropathy. Urinary bladder and prostate appear unremarkable. Aorta and IVC are also within normal limits. Nonspecific prominent and mildly enlarged iliac chain lymph nodes are seen measuring up to 11 mm in short axis on the right. No bowel obstruction. 2.8 cm focus about the intraluminal sigmoid colon is noted on image 414 series 5 suggests of a probable stool contents. Terminal ileum is unremarkable. The appendix is dilated measuring up to 9 mm and fluid-filled. Mild periappendiceal inflammatory stranding. No drainable fluid collection. Soft tissues are unremarkable. Degenerative changes of the spine, pelvis and hips. Multilevel central canal or neuroforaminal narrowing of the lumbar spine. IMPRESSION: 1. Dilated fluid-filled appendix with mild periappendiceal inflammatory stranding is suggestive of acute uncomplicated appendicitis in the appropriate clinical setting. No evidence of perforation or drainable fluid collection. 2. No bowel obstruction. 3. Hepatosplenomegaly with hepatic steatosis. 4. No renal or ureteral calculi or obstructive uropathy. 5. Nonspecific prominent and mildly enlarged iliac chain lymph nodes. 6. Additional findings as above. Electronically signed by: Pee Armstrong M.D. 02/20/2019 11:37 AM Blood Pressure Blood Pressure Findings: Elevated blood pressure Blood Pressure Disposition: Referred to patients primary care provider MDM Narrative This is a 53-year-old male who presents emergency department complaining of right lower quadrant abdominal pain. Patient is on Coumadin for a history of DVTs. His Coumadin levels found to be elevated at 2.5. Using shared medical decision making with both the patient and his he was sent for CAT scan of the abdomen pelvis. This was concerning for acute appendicitis. Based on this I did discuss his case with the surgeon on-call. Both myself and the surgeon discussed the case with Dr. Verduzco who is on-call for hematology. We made the decision to reverse this patient's INR using Kcentra and vitamin K. The patient's INR was then repeated and found to be normal. Patient was then taken to the operating room for appendicitis. He was also given Mefoxin and here in the emergency department. Impression & Plan Acute appendicitis with localized peritonitis, Abdominal pain, Elevated INR Discharge Plan Visit Data *Final* Discharge Date/Time: 02/20/19 14:56 Chief Complaint: Abdominal Pain Stated Complaint: RIGHT LOWER ABDOMINAL PAIN ED Provider: Abad Sweet Discharge Problem: Acute appendicitis with localized peritonitis, Abdominal pain, Elevated INR Patient Disposition: Admitted As Inpatient Discharge Instructions Interventions: ED Discharge Assessment Last Done: 02/20/19 14:56 The scribe's documentation has been prepared under my direction and personally reviewed by me in its entirety. I confirm that the note above accurately reflects all work, treatment, procedures, and medical decision making performed by me.
[2019-02-20 15:06] LABS: Appearance Urine Clear (Clear); Bacteria Urine Automated Negative (Negative); Bilirubin Urine Negative (Negative); Blood Urine Negative (Negative); Color Urine Yellow; Glucose Urine UA Negative (Negative); Ketones Urine Negative (Negative); Leukocyte Esterase Urine Negative (Negative); Nitrite Urine Negative (Negative); Protein Urine 2+ (Negative); RBC Urine Automated 0-4 /hpf (0-4); Specific Gravity Urine 1.022 (1.000-1.030); Urobilinogen Urine Negative (Negative); pH Urine 6.5 (4.5-7.5)
[2019-02-20] MEDS ORDERED: SUCCINYLCHOLINE CHLORIDE 20 MG/ML 10 ML VIAL ONE (15:46)
--- NOTE | 2019-02-20 16:32 | Operative Report ---
Post Operative Report Pre & Post Diagnosis Operation Date: 02/20/19 13:35 Pre-Op Diagnosis: Acute appendicitis Post-Op Diagnosis: Acute nonperforated, suppurative appendicitis Procedure Operation Date: 02/20/19 13:35 Actual Procedures p Laparoscopic Appendectomy - Eduardo Burgos DO, ULISSES Surgeon Eduardo Burgos DO, ULISSES Expenditure Requisition Clerk Manuel Ewing Estimated Blood Loss 5 Findings Consistent with Post-Op Diagnosis Acute, nonperforated, suppurative appendicitis. Appendix stapled, mesoappendix divided using harmonic scalpel Specimens Appendix Anesthesia Type General Complications none Disposition Accompanied Patient To Recovery: No Disposition: Recovery Room Indications 53-year-old super obese male on Coumadin for history of DVT presented with signs and symptoms of acute appendicitis. The patient was given Kcentra and vitamin K prior to proceeding to the operating room. Plan for laparoscopic appendectomy, possible open. The risks of the procedure were discussed, all questions were answered, and the patient agreed to proceed with surgery as planned. Description of Procedure The patient was properly identified, consented, and taken to the operating room where he was placed in the supine position. Prior to the surgery vitamin K and Kcentra had been given as the patient was on Coumadin and his INR was 3.4. General endotracheal anesthesia was induced. SCDs and a safety belt were placed. Preoperative antibiotics were administered. A Pichardo catheter was placed. The patient's abdomen was prepped and draped in the standard sterile fashion. Surgical timeout was performed and all parties were in agreement that this was the correct patient and procedure to be performed and we continued as planned. A curvilinear infraumbilical incision was made with electrocautery and deepened down to the fascia with blunt dissection. The base of the umbilicus was grasped with a Lissy and elevated towards the ceiling. An incision was made in the midline fascia with a knife and entry into the peritoneum was confirmed. Stay suture of 0 Vicryl was placed and a Strong trocar was inserted. The abdomen was insufflated with carbon dioxide which the patient tolerated without incident. The laparoscope was inserted and no damage from initial trocar placement was noted, no gross abnormalities were noted within the 4 quadrants the abdomen. 5 mm ports were then placed in the left lower quadrant with care not to damage the epigastric vessels, and in the suprapubic midline with care not to damage the bladder. The patient was placed in Trendelenburg position and rotated towards the left. The small bowel was swept away from the right lower quadrant. There was some fibrinous exudate in the right lower quadrant. The ligament of Treves and part of the small bowel had some fibrinous adhesions to the abdominal wall and cecum. These were taken down bluntly. the cecum was grasped with an atraumatic grasper exposing the appendix. The appendix was moderately inflamed and there was no evidence of perforation. There was no significant fluid in the pelvis. A window was created betweenthe base of the appendix and the mesoappendix. A leija loaded endoscopic stapler was then used to divide the appendix at its base. The harmonic scalpel was then used to divide the mesoappendix. There is a small amount of oozing noted from what appeared to be a stump of the appendiceal artery. A 5 mm clip was placed. Hemostasis was good. The appendix was placed in an Endo Catch bag and removed through the umbilical port site. The right lower quadrant and pelvis was irrigated and hemostasis was found to be good. 5 mm trochars were removed under direct visualization and the abdomen was allowed to collapse. The umbilical port site fascia was closed with 0 Vicryl suture. The wound was irrigated, and the skin of all ports was closed with 4-0 Monocryl subcuticular sutures. Dermabond was placed over the wounds. The patient was extubated in the operating room and taken to the PACU where he recovered without apparent incident. All sponge, instrument and needle counts were correct at the conclusion of the procedure. The patient tolerated the procedure well. The physician's shampoo assistant was present and scrubbed for the entirety of the case. He was critical in positioning the patient, prepping and draping, retraction and exposure, driving the laparoscope, closure the incisions, and placement of the dressings. I attest to the content of the Intraoperative Record and any orders documented therein. Any exceptions are noted below.
--- NOTE | 2019-02-20 17:08 | Anesthesiology Progress Note ---
Date of Service February 20, 2019 Anesthesia Post Procedure Vital Signs Vital Signs: Temp Pulse Pulse Pulse Resp BP BP 02/20/19 17:00 61 18 167/70 H 02/20/19 16:50 61 20 164/75 H 02/20/19 16:40 98.4 F 62 24 167/87 H 02/20/19 15:07 98.2 F 76 20 175/96 H 02/20/19 14:56 98.2 F 95 H 20 161/97 H 02/20/19 14:54 80 20 02/20/19 13:30 82 20 02/20/19 12:30 80 20 02/20/19 11:31 82 82 20 02/20/19 09:55 98.2 F 92 H 22 166/69 H BP Pulse Ox 02/20/19 17:00 93 02/20/19 16:50 99 02/20/19 16:40 96 02/20/19 15:07 93 02/20/19 14:56 95 02/20/19 14:54 160/92 H 95 02/20/19 13:30 162/97 H 95 02/20/19 12:30 161/97 H 95 02/20/19 11:31 161/97 H 95 02/20/19 09:55 97 Pain Intensity Abdomen: Pain Intensity: 4 Transfer of Care Handoff Completed per policy Notes Mental Status: alert / awake / arousable and participated in evaluation Patient Amnestic to Procedure: Yes Nausea / Vomiting: adequately controlled Pain: adequately controlled Airway Patency, RR, SpO2: stable & adequate BP & HR: stable & adequate Hydration State: stable & adequate Anesthetic Complications: no major complications apparent and Pt Satisfied with anesthetic care
[2019-02-20] MEDS ORDERED: ACETAMINOPHEN 1,000 MG/100 ML VIAL IV PRN (17:32)
[2019-02-20] MEDS ORDERED: MoRPHine SULFATE 2 MG/ML CARP IV PRN (17:32)
[2019-02-20] MEDS ORDERED: OXYCODONE/ACETAMINOPHEN 5mg/325mg TAB PO PRN (17:32)
[2019-02-20] MEDS ORDERED: MoRPHine SULFATE 4 MG/ML 1 ML CARP\\VIAL IV PRN (17:32)
[2019-02-20] MEDS: LACTATED RINGER'S 1,000 ML IV SCH ×2 (18:19→23:44)
[2019-02-20] MEDS ORDERED: COUGH DROP (SUGAR FREE) LOZ 24 LOZ/1 BOX BUCCAL PRN (18:57)
[2019-02-20] MEDS: cefOXitin 2,000 MG in DEXTROSE 5% 50 ML IV SCH (21:39)
[2019-02-21] MEDS: cefOXitin 2,000 MG in DEXTROSE 5% 50 ML IV SCH (03:41)
[2019-02-21] MEDS: LACTATED RINGER'S 1,000 ML IV SCH (07:30)
--- NOTE | 2019-02-21 08:11 | Anesthesiology Progress Note ---
Date of Service February 21, 2019 Anesthesia Post Procedure Vital Signs Vital Signs: Temp Pulse Pulse Pulse Resp BP BP 02/21/19 07:26 36.6 C 78 19 170/81 H 02/21/19 04:10 36.8 C 69 18 130/70 02/20/19 23:45 37 C 76 18 142/73 H 02/20/19 20:30 36.6 C 89 22 167/79 H 02/20/19 19:28 36.9 C 85 18 151/74 H 02/20/19 18:34 36.6 C 72 20 163/74 H 02/20/19 18:00 36.7 C 74 20 167/80 H 02/20/19 17:30 37.2 C 72 18 177/72 H 02/20/19 17:20 36.2 C L 67 18 169/61 H 02/20/19 17:10 66 18 148/68 H 02/20/19 17:00 61 18 167/70 H 02/20/19 16:50 61 20 164/75 H 02/20/19 16:40 36.9 C 62 24 167/87 H 02/20/19 15:07 36.8 C 76 20 175/96 H 02/20/19 14:56 36.8 C 95 H 20 161/97 H 02/20/19 14:54 80 20 02/20/19 13:30 82 20 02/20/19 12:30 80 20 02/20/19 11:31 82 82 20 02/20/19 09:55 36.8 C 92 H 22 166/69 H BP Pulse Ox 02/21/19 07:26 93 02/21/19 04:10 93 02/20/19 23:45 94 02/20/19 20:30 95 02/20/19 19:28 95 02/20/19 18:34 93 02/20/19 18:00 94 02/20/19 17:30 98 02/20/19 17:20 96 02/20/19 17:10 93 02/20/19 17:00 93 02/20/19 16:50 99 02/20/19 16:40 96 02/20/19 15:07 93 02/20/19 14:56 95 02/20/19 14:54 160/92 H 95 02/20/19 13:30 162/97 H 95 02/20/19 12:30 161/97 H 95 02/20/19 11:31 161/97 H 02/20/19 09:55 97 Pain Intensity Abdomen: Pain Intensity: 3 Notes Mental Status: alert / awake / arousable and participated in evaluation Patient Amnestic to Procedure: Yes Nausea / Vomiting: adequately controlled Pain: adequately controlled Airway Patency, RR, SpO2: stable & adequate BP & HR: stable & adequate Hydration State: stable & adequate Anesthetic Complications: no major complications apparent and Pt Satisfied with anesthetic care
[2019-02-21 09:02] LABS: Basophils # (auto) 0.01 K/uL (0-0.2); Basophils % (auto) 0.1 %; Eosinophils # (auto) 0.01 K/uL (0-0.5); Eosinophils % (auto) 0.1 %; Hemoglobin 14.5 g/dL (14.0-18.0); Immature Granulocytes # (auto) 0.04 K/uL (0.00-0.02); Immature Granulocytes % (auto) 0.4 %; Lymphocytes % (auto) 7.6 %; Mean Corpuscular Hgb Conc 33.7 g/dL (32-36); Mean Corpuscular Volume 87.4 fL (80-100); Mean Platelet Volume 11.1 fL (7.4-10.4); Monocytes # (auto) 0.91 K/uL (0.11-0.59); Monocytes % (auto) 8.6 %; Neutrophils # (auto) 8.82 K/uL (1.4-6.5); Neutrophils % (auto) 83.2 %; Platelet Count 260 K/uL (130-400); RDW Coefficient of Variation 14.7 % (11.5-14.5); RDW Standard Deviation 47.1 fL (36.4-46.3); Red Blood Count 4.92 M/uL (4.7-6.1); White Blood Count 10.59 K/uL (4.8-10.8)
[2019-02-21 09:10] LABS: INR 1.2 (0.9-1.1); Prothrombin Time 11.7 Seconds (9.0-12.0)
--- NOTE | 2019-02-21 09:31 | Surgery Progress Note ---
Date of Service February 21, 2019 Assessment & Plan (1) Acute appendicitis with localized peritonitis: POD 1 lap appy ok for discharge Supervising Physician Co-Signing Physician Notes PNT S&E, agree with above. POD#1 lap appy. Tolerated diet, no pain. Incisions c/d/i. d/c to home, start coumadin tonight. f/u in 2 weeks. Subjective tolerating diet, minimal pain Physical Exam Gastrointestinal (Abdomen): Inspection/Auscultation: + abdominal surgical incision (clean, dry) Percussion/Palpation: abdomen soft Results & Data Vital Signs (Past 12 Hours) Vital Signs Temp Pulse Resp BP Pulse Ox 02/21/19 07:26 36.6 C 78 19 170/81 H 93 02/21/19 04:10 36.8 C 69 18 130/70 93 02/20/19 23:45 37 C 76 18 142/73 H 94
[2019-02-21 09:57] LABS: BUN Creatinine Ratio 13.4 (10-20); Calcium 9.5 mg/dl (8.5-10.1); Creatinine Clr Calc Pharmacy 181.6 ml/min; Est GFR (African American) 112.3; Est GFR (Non-African American) 96.9; Potassium 3.8 mmol/L (3.5-5.1)
[2019-02-21] MEDS ORDERED: ENOXAPARIN INJ 60 MG/0.6 ML SYR SQ ONE (11:00)
--- NOTE | 2019-02-21 15:23 | Discharge Summary ---
Date of Service February 21, 2019 Admission HPI Per Admitting Provider 53-year-old super obese male presented to the emergency department with abdominal pain that started on Wednesday. He thought he had a muscle strain and it hurt when riding heavy equipment at work and also when bending over to tie shoes. No prior similar episodes. He reports not feeling well overall but no fevers. Normal BMs. He is on Coumadin for history of DVT and took his last dose this morning. His INR was 3.4. His BMI is 55.8. He also had a GI bleed back in August from an ulcer. He ate breakfast this morning at 5:00. Principal Diagnosis 1. Acute appendicitis 2. History of DVT 3. Super obesity Discharge Exam Gastrointestinal (Abdomen) Inspection/Auscultation: + abdominal surgical incision (clean, dry); abdomen not distended Percussion/Palpation: abdomen soft Discharge Data Allergies Allergy/AdvReac Type Severity Reaction Status Date / Time No Known Allergies Allergy Unknown Verified 02/20/19 15:07 Consultations 02/20/19 11:57 ED Decision to Admit Stat Procedures Performed Operation Date: 02/20/19 13:35 Actual Procedures p Laparoscopic Appendectomy - Eduardo Burgos DO, FACS Ordered Studies 02/20/19 10:42 CT abd pelvis wo con Stat Hospital Course (1) Acute appendicitis with localized peritonitis: 53 y/o male with abdominal pain for several days and CT showing acute appendicitis. He is on coumadin for history of DVT, INR was 3.4. He was given Kcentra, and INR was was then 1.4. He was taken to the OR that afternoon for laparoscopic appendectomy. There was good hemostasis and the conclusion of the procedure. He was observed on the surgical andrews overnight. In the morning he was tolerating regular diet and oral analgesics. His hemoglobin was 14.5, and was unchanged compared to preop. He was given a dose of Lovenox prior to discharge and will resume his regular coumadin dosing starting with 10 mg tonight. Total Time Total Time Spent Total Time Spent (In Minutes): 15 Discharge Plan Discharge Items Patient Disposition: Home - Self-Care Reason For Visit: APPENDICITIS Discharge Diagnosis: appendectomy Discharge Goals: Decrease discomfort Activity: Per 'Additional Instructions' section Lifting: No more than 25 pounds Bathing: No limitations Driving/Machine Use: Resume 3 days after discharge Non-emergency contact: Surgeon Call non-emergency contact if: you have any medication questions, your pain is not controlled, you have a fever, your temperature is above 101.5 and your wound has increased redness Follow-up/Referrals: Dao Watters DO [Primary Care Provider] - Eduardo Burgos, ULISSES VERDUGO [Physician] - (Call to make an appt for 1-2 weeks) Diet: Regular Addtl Provider Instructions: Take 10 mg coumadin tonight, then resume regular schedule Prescriptions: New oxycodone-acetaminophen [Percocet] 5-325 mg tablet 1 - 2 tab PO Q4H PRN (Reason: pain) Qty: 10 RF: 0 Continued warfarin 5 mg tablet 5 mg PO 4XWK RF: 0 warfarin 5 mg tablet 10 mg PO 3XWK RF: 0 furosemide 40 mg tablet 40 mg PO QAM RF: 0 potassium chloride 20 mEq tablet,ER particles/crystals 20 meq PO QAM RF: 0 spironolactone 50 mg tablet 50 mg PO BID RF: 0 acetaminophen [Tylenol Extra Strength] 500 mg Tablet 1,000 mg PO Q6H PRN (Reason: Pain) Qty: 30 RF: 0 Stand-Alone Forms: Call Back Authorization, [facility], Opioid Pain Management Krames/Other Patient Handouts: Surgery Prevent DVT After Discharge Orders: Discharge Order (Routine); Ordered 02/21/19 Ordered By: Manuel Ewing Jr Admission Data Admit Date/Time: 02/20/19 16:47 Attending Provider: Eduardo Burgos Admit Provider: Eduardo Burgos Primary Care Provider: Dao Watters Other Providers: Eduardo Burgos Service: Surgical Services Other Interventions: Discharge Summary Assessment (RN) Last Done: 02/21/19 09:50 DC Date/Time DO NOT enter until pt leaves facility: 02/21/19 12:33
== END 2019-02-21 12:33 | disposition home or self-care (01) ==
LOC: ED 09:49 → 3W 09:49 → SUPCPDRO 16:47

== ENCOUNTER 2022-11-30 17:18 | Inpatient (IN) ==
--- NOTE | 2022-11-30 17:33 | ED Triage Note ---
Date of Service November 30, 2022 History of Present Illness This patient was briefly evaluated while in triage. An abbreviated physical exam was performed. This patient is a 56-year-old Male who presents to the ED for evaluation of a possible infection to the left leg. Symptoms started 6 weeks ago and getting progressively worse. Does not remember injuring the area. Noticed a red spot to the back of the right calf, but now there is a lot of swelling and redness to his whole left lower leg. Has been leaking yellow fluid from the area frequently. Chills and sweats for the past 24 hrs, but no measured fevers. Physical Exam GENERAL: Non-toxic and in no acute distress. HEENT: Pupils equal. No obvious scleral icterus. HEART: Regular rate and rhythm. LUNGS: Clear to auscultation. No accessory muscle use. NEURO: Alert and oriented. No obvious neurological deficits on quick neuro exam. MUSCULOSKELETAL: Significant edema and erythema to the left lower leg. There is an area of skin breakdown posteriorly with some serous discharge. However, the wound was not fully assessed in triage due to a bandage being in place. Initial orders for labs and / or imaging were placed and patient was placed in the waiting area until a bed is available. Please see further documentation for the full ED course. MDM / Impression Impression Impression: Cellulitis of left leg, Morbid obesity, Acute pain of left lower extremity, Elevated lactic acid level, Lab test negative for COVID-19 virus
[2022-11-30 18:21] LABS: Basophils # (auto) 0.04 K/uL (0-0.2); Basophils % (auto) 0.4 %; Eosinophils # (auto) 0.07 K/uL (0-0.50); Eosinophils % (auto) 0.7 %; Hematocrit (blood only) 47.8 % (42.0-52.0); Immature Granulocytes # (auto) 0.09 K/uL (0.01-0.20); Immature Granulocytes % (auto) 0.9 %; Lymphocytes # (auto) 1.15 K/uL (1.2-3.4); Lymphocytes % (auto) 11.5 %; Mean Corpuscular Hemoglobin 30.4 pg (25.0-34.0); Mean Corpuscular Hgb Conc 33.5 g/dL (32.0-36.0); Mean Corpuscular Volume 90.9 fL (80.0-100.0); Mean Platelet Volume 10.9 fL (9.4-12.4); Monocytes # (auto) 1.19 K/uL (0.11-0.59); Monocytes % (auto) 11.9 %; Neutrophils # (auto) 7.49 K/uL (1.40-6.50); Neutrophils % (auto) 74.6 %; Platelet Count 187 K/uL (130-400); RDW Coefficient of Variation 14.1 % (11.5-14.5); RDW Standard Deviation 47.3 fL (36.4-46.3); Red Blood Count 5.26 M/uL (4.70-6.10); White Blood Count 10.03 K/ul (4.8-10.8)
[2022-11-30 18:40] LABS: Albumin Globulin Ratio 1.4 (0.9-2); Albumin Level 4.2 gm/dl (3.4-5.0); BUN Creatinine Ratio 16.7 (10-20); Bilirubin,Total 1.2 mg/dl (0.2-1.0); Calcium 9.8 mg/dl (8.6-10.3); Creatinine Clr Calc Pharmacy 169.7 ml/min; Est GFR (African American) 109.5 ml/min; Est GFR (Non-African American) 94.5 ml/min; Total Protein 7.2 gm/dl (6.0-8.3)
[2022-11-30 18:56] LABS: INR 2.5 (0.9-1.1); Prothrombin Time 25.6 Seconds (9.0-12.0)
[2022-11-30] MEDS ORDERED: cefTRIAXone SODIUM 2,000 MG/70 ML BAG IV STA (19:03)
[2022-11-30] MEDS ORDERED: SODIUM CHLORIDE 0.9% 1000ML 1,000 ML IV ONE ×2 (19:03→20:58)
--- NOTE | 2022-11-30 19:09 | Emergency Department Note ---
History of Present Illness General Chief complaint: Infection Stated complaint: L LEG OPEN SORE,CELLULITIS Time Seen by Provider: 11/30/22 18:54 Source: patient, family ( who is at the bedside), RN notes reviewed and old records reviewed Mode of arrival: ambulatory Limitations: no limitations History of Present Illness Maximum Pain Intensity: 4 This patient is a 56-year-old male who has a history of DVT x2 in his left leg comes in after having pain and swelling in that leg. He 6 weeks ago he started seeping from the posterior aspect is gotten more swollen and red is very tender to touch overnight he is developed chills and nausea and dizziness. No chest pain or shortness of breath. Denies any injury. He is on Coumadin but has not had his levels checked for a while and his last blood clot was about 8 years ago. No abdominal pain or distention. Home Medications Medication Instructions Recorded Confirmed Type furosemide 40 mg tablet 40 mg PO QAM 08/08/18 11/30/22 History warfarin 5 mg tablet See Rx Instructions .Route .COMPLEX 02/20/19 11/30/22 History amlodipine 5 mg tablet 5 mg PO DAILY 11/30/22 11/30/22 History losartan 100 1 tab PO DAILY 11/30/22 11/30/22 History mg-hydrochlorothiazide 25 mg tablet tramadol 50 mg tablet 50 mg PO Q8H PRN Pain 11/30/22 11/30/22 History Allergies Allergy/AdvReac Type Severity Reaction Status Date / Time No Known Allergies Allergy Unknown Verified 11/30/22 19:35 Past Med/Surg History Medical History Acute blood loss anemia Arthritis DVT (deep venous thrombosis) Gastric ulcer History of DVT (deep vein thrombosis) HTN (hypertension) Lower extremity cellulitis Lower extremity edema Morbid obesity Morbid obesity Obstructive sleep apnea Renal failure Surgical History Hx of appendectomy Family History Unknown No problems noted. 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 [employer] Other Information That Helps Us Care for You: No Feels Safe at Home: Yes and No Is there a partner from a previous relationship who is making you feel unsafe now?: No Any Concerns about Your Family Situation: No Would You Like to Speak to Someone About Your Situation: No Safety Concerns: Feels Safe At This Time Assistive Devices: None Review of Systems A total of 10 systems reviewed and were otherwise negative Physical Exam Vital Signs Vital Signs - 24 hr 11/30/22 17:25 11/30/22 20:49 Temperature 37.0 C 36.9 C Temperature Source Temporal Artery Scan Oral Pulse Rate 82 Pulse Rate [Finger] 92 H Pulse Rhythm Regular Pulse Strength Normal Respiratory Rate 18 20 Respiratory Effort / Characteristics Non-Labored Non-Labored Spontaneous Respiratory Depth Normal Normal Respiratory Pattern Regular Blood Pressure 211/77 H Blood Pressure [Right Arm] 180/77 H Blood Pressure Mean 121 Blood Pressure Mean [Right Arm] 111 Blood Pressure Position Sitting Blood Pressure Position [Right Arm] Semi-fowlers Pulse Oximetry 98 92 Oxygen Delivery Method Room Air Room Air Sepsis Recent Fever Within 48 Hours Yes Sepsis New/Unexplained Change in Mental Status No Sepsis Action Taken by Nursing No Action Required General: Well developed well nourished obese middle-age male who appears in no acute distress, breathing comfortably on room air. Normal speech HEENT: Normal cephalic atraumatic. Pupils are equal round and reactive to light. Extraocular movements are intact. Oropharynx is pink with moist mucous membranes. No swelling of the mouth lips or tongue. Neck: Supple with a midline trachea. No meningeal signs or stiffness, no JVD or bruits. No Stridor. Chest: Clear to auscultation bilaterally. No wheezes or rhonchi. No increased work of breathing. Heart: Regular rate and rhythm without murmurs or gallops. Abdomen: Soft nontender, nondistended without rebound guarding or rigidity. Extremities: No cyanosis clubbing. His left lower extremity is red and very tender throughout the leg below the knee. There is a small breakdown of the skin posteriorly. 2+ distal pulses. Spine/Back. Non tender to palpation. No CVA tenderness Skin: Good turgor without rashes. Neurologic exam: Cranial nerves two through 12 are intact. Motor and sensation are intact and symmetrical throughout. Course Administered Medications Daptomycin 525 mg/ Syringe 10.5 mls @ 5.25 mls/min IV Q24H [facility]; Protocol Stop: 12/08/22 00:00 Last Admin: 12/01/22 00:50 Dose: 5.25 mls/min Documented By: ANGÉLICA Sodium Chloride (Nss 1000ml) 1,000 mls @ 125 mls/hr IV .Q8H RADHA Stop: 12/01/22 07:44 Last Admin: 12/01/22 00:51 Dose: 125 mls/hr Documented By: ANGÉLICA Discontinued Medications Sodium Chloride (Nss 1000ml) 1,000 mls @ 999 mls/hr IV .Q1H1M ONE Stop: 11/30/22 20:03 Last Infusion: 11/30/22 21:06 Dose: 0 mls/hr Documented By: Admin: 11/30/22 19:37 Dose: 999 mls/hr Documented By: AB Ceftriaxone Sodium (Rocephin) 2,000 mg in 70 mls @ 140 mls/hr IV NOW STA Stop: 11/30/22 19:32 Last Infusion: 11/30/22 20:44 Dose: 0 mls/hr Documented By: Admin: 11/30/22 19:48 Dose: 140 mls/hr Documented By: AB Sodium Chloride (Nss 1000ml) 1,000 mls @ 999 mls/hr IV .Q1H1M ONE Stop: 11/30/22 21:58 Last Infusion: 11/30/22 22:41 Dose: 0 mls/hr Documented By: Admin: 11/30/22 21:06 Dose: 999 mls/hr Documented By: AB Morphine Sulfate (Morphine Sulfate 2 Mg/Ml Carp) 2 mg IV NOW STA Stop: 11/30/22 22:03 Last Admin: 11/30/22 22:37 Dose: 2 mg Documented By: AB Medical Decision Making Differential Diagnosis Cellulitis, DVT, sepsis, trauma, anemia, electrolyte or metabolic abnormality, cardiac disease Medical Records Attestation: I reviewed the patient's medical records. Home Medications Current Medication List: was personally reviewed by me Laboratory Data Attestation: I reviewed the patient's lab results. 11/30/22 17:43 11/30/22 17:43 Lab Results 11/30/22 11/30/22 11/30/22 Range/Units 17:43 17:43 17:43 WBC 10.03 (4.8-10.8) K/ul RBC 5.26 (4.70-6.10) M/uL Hgb 16.0 (14.0-18.0) g/dl Hct 47.8 (42.0-52.0) % MCV 90.9 (80.0-100.0) fL MCH 30.4 (25.0-34.0) pg MCHC 33.5 (32.0-36.0) g/dL RDW Std Deviation 47.3 H (36.4-46.3) fL RDW Coeff of Randy 14.1 (11.5-14.5) % Plt Count 187 (130-400) K/uL MPV 10.9 (9.4-12.4) fL Immature Gran % (Auto) 0.9 % Neut % (Auto) 74.6 % Lymph % (Auto) 11.5 % Mccreary % (Auto) 11.9 % Eos % (Auto) 0.7 % Baso % (Auto) 0.4 % Neut # (Auto) 7.49 H (1.40-6.50) K/uL Lymph # (Auto) 1.15 L (1.2-3.4) K/uL Mccreary # (Auto) 1.19 H (0.11-0.59) K/uL Eos # (Auto) 0.07 (0-0.50) K/uL Baso # (Auto) 0.04 (0-0.2) K/uL Immature Gran # (Auto) 0.09 (0.01-0.20) K/uL PT 25.6 H (9.0-12.0) Seconds INR 2.5 H (0.9-1.1) Sodium 139 (136-145) mmol/L Potassium 4.0 (3.5-5.1) mmol/L Chloride 102 (98-107) mmol/L Carbon Dioxide 30 (21-32) mmol/L Anion Gap 7 (3-11) BUN 15 (6-23) mg/dl Creatinine 0.90 (0.6-1.4) mg/dl Est Cr Clr Drug Dosing 169.7 ml/min Est GFR ( Amer) 109.5 ml/min Est GFR (Non-Af Amer) 94.5 ml/min BUN/Creatinine Ratio 16.7 (10-20) Glucose 93 (70-99(Fasting)) mg/dl Lactate (0.4-2.0) mmol/L Calcium 9.8 (8.6-10.3) mg/dl Total Bilirubin 1.2 H (0.2-1.0) mg/dl AST 19 (13-39) U/L ALT 19 (7-52) U/L Alkaline Phosphatase 62 (34-104) U/L Troponin I High Sens (0-20) pg/ml Total Protein 7.2 (6.0-8.3) gm/dl Albumin 4.2 (3.4-5.0) gm/dl Globulin 3.0 (2.5-4.0) gm/dl Albumin/Globulin Ratio 1.4 (0.9-2) Procalcitonin (0-0.5) ng/ml SARS-CoV-2 (PCR) (Negative) Influenza Type A (PCR) (Neg) Influenza Type B (PCR) (Neg) RSV (RT-PCR) (Neg) 11/30/22 11/30/22 11/30/22 Range/Units 17:43 17:45 19:28 WBC (4.8-10.8) K/ul RBC (4.70-6.10) M/uL Hgb (14.0-18.0) g/dl Hct (42.0-52.0) % MCV (80.0-100.0) fL MCH (25.0-34.0) pg MCHC (32.0-36.0) g/dL RDW Std Deviation (36.4-46.3) fL RDW Coeff of Randy (11.5-14.5) % Plt Count (130-400) K/uL MPV (9.4-12.4) fL Immature Gran % (Auto) % Neut % (Auto) % Lymph % (Auto) % Mccreary % (Auto) % Eos % (Auto) % Baso % (Auto) % Neut # (Auto) (1.40-6.50) K/uL Lymph # (Auto) (1.2-3.4) K/uL Mccreary # (Auto) (0.11-0.59) K/uL Eos # (Auto) (0-0.50) K/uL Baso # (Auto) (0-0.2) K/uL Immature Gran # (Auto) (0.01-0.20) K/uL PT (9.0-12.0) Seconds INR (0.9-1.1) Sodium (136-145) mmol/L Potassium (3.5-5.1) mmol/L Chloride (98-107) mmol/L Carbon Dioxide (21-32) mmol/L Anion Gap (3-11) BUN (6-23) mg/dl Creatinine (0.6-1.4) mg/dl Est Cr Clr Drug Dosing ml/min Est GFR ( Amer) ml/min Est GFR (Non-Af Amer) ml/min BUN/Creatinine Ratio (10-20) Glucose (70-99(Fasting)) mg/dl Lactate 2.9 H* (0.4-2.0) mmol/L Calcium (8.6-10.3) mg/dl Total Bilirubin (0.2-1.0) mg/dl AST (13-39) U/L ALT (7-52) U/L Alkaline Phosphatase (34-104) U/L Troponin I High Sens (0-20) pg/ml Total Protein (6.0-8.3) gm/dl Albumin (3.4-5.0) gm/dl Globulin (2.5-4.0) gm/dl Albumin/Globulin Ratio (0.9-2) Procalcitonin < 0.05 (0-0.5) ng/ml SARS-CoV-2 (PCR) NEGATIVE (Negative) Influenza Type A (PCR) Negative (Neg) Influenza Type B (PCR) Negative (Neg) RSV (RT-PCR) Negative (Neg) 11/30/22 11/30/22 Range/Units 19:45 19:46 WBC (4.8-10.8) K/ul RBC (4.70-6.10) M/uL Hgb (14.0-18.0) g/dl Hct (42.0-52.0) % MCV (80.0-100.0) fL MCH (25.0-34.0) pg MCHC (32.0-36.0) g/dL RDW Std Deviation (36.4-46.3) fL RDW Coeff of Randy (11.5-14.5) % Plt Count (130-400) K/uL MPV (9.4-12.4) fL Immature Gran % (Auto) % Neut % (Auto) % Lymph % (Auto) % Mccreary % (Auto) % Eos % (Auto) % Baso % (Auto) % Neut # (Auto) (1.40-6.50) K/uL Lymph # (Auto) (1.2-3.4) K/uL Mccreary # (Auto) (0.11-0.59) K/uL Eos # (Auto) (0-0.50) K/uL Baso # (Auto) (0-0.2) K/uL Immature Gran # (Auto) (0.01-0.20) K/uL PT (9.0-12.0) Seconds INR (0.9-1.1) Sodium (136-145) mmol/L Potassium (3.5-5.1) mmol/L Chloride (98-107) mmol/L Carbon Dioxide (21-32) mmol/L Anion Gap (3-11) BUN (6-23) mg/dl Creatinine (0.6-1.4) mg/dl Est Cr Clr Drug Dosing ml/min Est GFR ( Amer) ml/min Est GFR (Non-Af Amer) ml/min BUN/Creatinine Ratio (10-20) Glucose (70-99(Fasting)) mg/dl Lactate 2.8 H* (0.4-2.0) mmol/L Calcium (8.6-10.3) mg/dl Total Bilirubin (0.2-1.0) mg/dl AST (13-39) U/L ALT (7-52) U/L Alkaline Phosphatase (34-104) U/L Troponin I High Sens 9.1 (0-20) pg/ml Total Protein (6.0-8.3) gm/dl Albumin (3.4-5.0) gm/dl Globulin (2.5-4.0) gm/dl Albumin/Globulin Ratio (0.9-2) Procalcitonin (0-0.5) ng/ml SARS-CoV-2 (PCR) (Negative) Influenza Type A (PCR) (Neg) Influenza Type B (PCR) (Neg) RSV (RT-PCR) (Neg) Imaging Data Attestation: I personally reviewed and interpreted this imaging study as follows: My Impression: Chest x-raycardiomegaly and large body habitus. No focal infiltrate or pneumothorax. Radiologist's Impression: Venous Doppler Study 11/30/22 17:33 Exam(s): US VENOUS LEFT LOWER EXTREMITY EXAM: US Duplex Left Lower Extremity Veins CLINICAL HISTORY: Reason for exam: Swelling, pain, redness. Eval DVT/abscess. TECHNIQUE: Real-time duplex ultrasound scan of the left lower extremity veins integrating B-mode two-dimensional vascular structure, Doppler spectral analysis, color flow Doppler imaging and compression. COMPARISON: None. FINDINGS: Deep veins: Unremarkable. No DVT in the visualized common femoral, femoral, proximal deep femoral or popliteal veins. The veins demonstrate normal color flow, are normally compressible, with normal phasic flow and/or augmentation response. Superficial veins: Unremarkable. No thrombus in the visualized great saphenous vein. Soft tissues: Edema is seen in the left lower extremity. No popliteal cyst. IMPRESSION: No evidence of deep vein thrombosis in the left lower extremity. Electronically signed by: Kody Vicente MD 11/30/22 21:42 PM ECG Data Attestation: I personally reviewed and interpreted this ECG as follows: Indication: + weakness Rate (beats per minute): 95 Rhythm: + normal sinus ECG Intervals/blocks: + First degree AV block, + Incomplete right bundle branch block and + Normal QT ECG [place]: + Normal ECG ST segments: + Normal ST segments ECG Findings: no PACs or no PVCs Comparison ECG Date: from (08/08/18) Change: no significant change MDM Narrative This patient comes in as described above. He was initially seen in triage and had orders done there. I saw him when he got back to the room and his blood work was already back with a lactate of 3.1. Given his presentation redness in the leg, concerned about cellulitis although DVT is still in differential. He had an IV established and blood cultures. I did order Rocephin 2 g IV. I also ordered 1 L IV normal saline bolus and a chest x-ray and EKG to further evaluate him. Ultrasound had been previously ordered. I did not give him 30/kg as I was concerned about potential CHF given his peripheral edema bilaterally and was concerned about fluid overloaded. he was reassessed frequently. I did COVID testing in anticipation for likely admission. COVID testing was negative. EKG does not show any ischemic changes. Ultrasound was negative for DVT. The patient's lactate #2 did not clear significantly however this was drawn prior to him having much fluid. I did give him a second 1 L normal saline bolus. I reassessed him before this and he had no shortness of breath or crackles in his lungs. His blood pressure is remained stable he feels a lot better after receiving 2 L normal saline as well as Rocephin and he will be admitted for further treatment and evaluation. Continuous cardiac monitoring: Orders placed in EMR for continuous cardiac monitoring: Upon my evaluation patient noted to be normal sinus rhythm rate of 90 Impression & Plan Cellulitis of left leg, Morbid obesity, Acute pain of left lower extremity, Elevated lactic acid level, Lab test negative for COVID-19 virus Discharge Plan Visit Data Chief Complaint: Infection Stated Complaint: L LEG OPEN SORE,CELLULITIS ED Provider: Olayinka Bateman Discharge Problem: Cellulitis of left leg, Morbid obesity, Acute pain of left lower extremity, Elevated lactic acid level, Lab test negative for COVID-19 virus Patient Disposition: Admitted As Inpatient Discharge Instructions Interventions: ED Discharge Assessment Last Done: 11/30/22 23:09
[2022-11-30 20:30] LABS: Influenza A virus by PCR Negative (Neg); Influenza B virus by PCR Negative (Neg); RSV by PCR Negative (Neg); SARS CoV2 RNA(COVID-19) Ceph NEGATIVE (Negative)
--- NOTE | 2022-11-30 21:43 | Ultrasound Report ---
Exam(s): US VENOUS LEFT LOWER EXTREMITY EXAM: US Duplex Left Lower Extremity Veins CLINICAL HISTORY: Reason for exam: Swelling, pain, redness. Eval DVT/abscess. TECHNIQUE: Real-time duplex ultrasound scan of the left lower extremity veins integrating B-mode two-dimensional vascular structure, Doppler spectral analysis, color flow Doppler imaging and compression. COMPARISON: None. FINDINGS: Deep veins: Unremarkable. No DVT in the visualized common femoral, femoral, proximal deep femoral or popliteal veins. The veins demonstrate normal color flow, are normally compressible, with normal phasic flow and/or augmentation response. Superficial veins: Unremarkable. No thrombus in the visualized great saphenous vein. Soft tissues: Edema is seen in the left lower extremity. No popliteal cyst. IMPRESSION: No evidence of deep vein thrombosis in the left lower extremity. Electronically signed by: Kody Vicente MD 11/30/22 21:42 PM
[2022-11-30] MEDS ORDERED: MoRPHine SULFATE 2 MG/ML CARP IV STA (22:02)
--- NOTE | 2022-11-30 22:09 | History & Physical Report ---
Date of Service November 30, 2022 Assessment & Plan (1) Cellulitis of left leg: Plan: 56-year-old male with morbid obesity, prior DVT on Coumadin anticoagulation, chronic venous stasis presenting with left lower extremity cellulitis and nonhealing wound. On exam he is afebrile, hemodynamically stable, nontoxic in appearance. Normal WBC = 10.03, negative procalcitonin of less than 0.05. Patient does have a mildly elevated lactate of 2.9 which did not yet resolved with fluids - repeat = 2.8 -Admit to medical -Monitor LLE cellulitis -Wound care daily -NSS at 125mL/hr x 1L -Repeat Lactate in AM -Tylenol PRN -Morphine PRN -Continue Ceftriaxone and Daptomycin (2) Severe obstructive sleep apnea: Plan: Chronic. Patient reports compliance with his home BiPAP. He has his machine with him -Continue biPAP qHS, home machine (3) HTN (hypertension): Plan: Blood pressure elevated presently -Pain control with Tylenol and Morphine PRN -Continue Amlodipine, Losartan -Hold Lasix for now -Continue to monitor (4) Elevated lactic acid level: Plan: Patient remains hemodynamically stable. Continue IVF Repeat Lactate level F/E/N -NSS at 125mL/hr x 1 liter, electrolytes WNL, Heart Healthy diet as tolerated Ppx - Continue Coumadin Code - Full Dispo - DNR/DNI per discussion with patient Dispo - Admit to medical History of Present Illness Chief Complaint: Swelling, pain, redness left lower extremity Primary Care Provider: Joel Mendoza DO Eduardo Young is a pleasant 56-year-old male with history of prior DVT on Coumadin anticoagulation (INR = 2.5), hypertension, severe sleep apnea and chronic venous stasis presenting with cellulitis of the left lower extremity. Patient does have history of chronic venous stasis and has had a wound on his posterior left leg for the last 6 weeks for which she has been treating with local wound care, Theriac/manuka honey ointment. Patient began feeling poorly last evening with chills and rigors. He went to bed around 1800 and slept 12 hours. When he woke this morning he had some increased pain, redness and swelling in his left foot. He relaxed through the day. Around 1500 he got up and had difficulty walking due to pain in his left foot and leg. Patient reports chills and rigors. Did not check his temperature. He denies chest pain or palpitations. He has stable, chronic shortness of breath which is unchanged. He had some mild nausea while in the ER which has since resolved. No vomiting. No diarrhea. No urinary complaints. No additional complaints at this time. In the ER he is afebrile, hypertensive otherwise hemodynamically stable. Elevated lactate = 2.9 --> 2.8 ER course: Ceftriaxone x2 g IV Normal saline x2 L Allergies Allergy/AdvReac Type Severity Reaction Status Date / Time No Known Allergies Allergy Unknown Verified 11/30/22 19:35 Home Medications Medication Instructions Recorded Confirmed Type furosemide 40 mg tablet 40 mg PO QAM 08/08/18 11/30/22 History warfarin 5 mg tablet See Rx Instructions .Route .COMPLEX 02/20/19 11/30/22 History amlodipine 5 mg tablet 5 mg PO DAILY 11/30/22 11/30/22 History losartan 100 1 tab PO DAILY 11/30/22 11/30/22 History mg-hydrochlorothiazide 25 mg tablet tramadol 50 mg tablet 50 mg PO Q8H PRN Pain 11/30/22 11/30/22 History Past Med/Surg History Medical History Acute blood loss anemia Arthritis DVT (deep venous thrombosis) Gastric ulcer History of DVT (deep vein thrombosis) HTN (hypertension) Lower extremity cellulitis Lower extremity edema Morbid obesity Morbid obesity Obstructive sleep apnea Renal failure Surgical History Hx of appendectomy Family History Unknown No problems noted. 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 Other Information That Helps Us Care for You: No Feels Safe at Home: Yes and No Is there a partner from a previous relationship who is making you feel unsafe now?: No Any Concerns about Your Family Situation: No Would You Like to Speak to Someone About Your Situation: No Safety Concerns: Feels Safe At This Time Assistive Devices: None Review of Systems Review of Systems: All systems reviewed & are unremarkable except as noted in HPI & below Physical Exam Physical Exam: General: Morbidly obese male patient resting comfortably, NAD, non-toxic in appearance, AA&O x 4 Skin: warm, dry, warmth, redness and tenderness of left lower extremity to the knee, small open lesion posterior left leg with clear drainage HEENT: NC/AT, PERRL, EOMI, anicteric sclera, conjunctiva without injection, external ear normal to inspection and nontender, nares patent, moist mucus membranes, dentition intact, no oropharyngeal lesions, neck supple, trachea midline, no LAD, no thyromegaly, no JVD Heart: +S1/S2, regular, no m/r/g Lungs: equal air entry bilaterally, no rales/rhonchi/wheezes Abd: +BS, soft, NT/ND, no masses/organomegaly/ascites Ext: warm, 1+ pulses in lower extremities, left lower extremity warm, edematous, erythematous with small open area on posterior left leg with clear drainage, no crepitus, bullae. No lymphangitic streaking. No pain with palpation of the thigh or groin Neuro: nonfocal, patient AA&O x 4, speech intact, no facial droop, moving all extremities on command with equal strength 5/5 Results & Data Results & Data Vital Signs (Past 12 Hours) Vital Signs Temp Pulse Pulse Resp BP BP Pulse Ox 11/30/22 20:49 36.9 C 92 H 20 180/77 H 92 11/30/22 17:25 37.0 C 82 18 211/77 H 98 O2 Del Method 11/30/22 20:49 Room Air 11/30/22 17:25 Room Air Laboratory Results Laboratory Results WBC 10.03 K/ul (4.8-10.8) 11/30/22 17:43 RBC 5.26 M/uL (4.70-6.10) 11/30/22 17:43 Hgb 16.0 g/dl (14.0-18.0) 11/30/22 17:43 Hct 47.8 % (42.0-52.0) 11/30/22 17:43 MCV 90.9 fL (80.0-100.0) 11/30/22 17:43 MCH 30.4 pg (25.0-34.0) 11/30/22 17:43 MCHC 33.5 g/dL (32.0-36.0) 11/30/22 17:43 RDW Std Deviation 47.3 fL (36.4-46.3) H 11/30/22 17:43 RDW Coeff of Randy 14.1 % (11.5-14.5) 11/30/22 17:43 Plt Count 187 K/uL (130-400) 11/30/22 17:43 MPV 10.9 fL (9.4-12.4) 11/30/22 17:43 Immature Gran % (Auto) 0.9 % 11/30/22 17:43 Neut % (Auto) 74.6 % 11/30/22 17:43 Lymph % (Auto) 11.5 % 11/30/22 17:43 Mcintosh % (Auto) 11.9 % 11/30/22 17:43 Eos % (Auto) 0.7 % 11/30/22 17:43 Baso % (Auto) 0.4 % 11/30/22 17:43 Neut # (Auto) 7.49 K/uL (1.40-6.50) H 11/30/22 17:43 Lymph # (Auto) 1.15 K/uL (1.2-3.4) L 11/30/22 17:43 Mcintosh # (Auto) 1.19 K/uL (0.11-0.59) H 11/30/22 17:43 Eos # (Auto) 0.07 K/uL (0-0.50) 11/30/22 17:43 Baso # (Auto) 0.04 K/uL (0-0.2) 11/30/22 17:43 Immature Gran # (Auto) 0.09 K/uL (0.01-0.20) 11/30/22 17:43 PT 25.6 Seconds (9.0-12.0) H 11/30/22 17:43 INR 2.5 (0.9-1.1) H 11/30/22 17:43 Sodium 139 mmol/L (136-145) 11/30/22 17:43 Potassium 4.0 mmol/L (3.5-5.1) 11/30/22 17:43 Chloride 102 mmol/L (98-107) 11/30/22 17:43 Carbon Dioxide 30 mmol/L (21-32) 11/30/22 17:43 Anion Gap 7 (3-11) 11/30/22 17:43 BUN 15 mg/dl (6-23) 11/30/22 17:43 Creatinine 0.90 mg/dl (0.6-1.4) 11/30/22 17:43 Est Cr Clr Drug Dosing 169.7 ml/min 11/30/22 17:43 Est GFR ( Amer) 109.5 ml/min 11/30/22 17:43 Est GFR (Non-Af Amer) 94.5 ml/min 11/30/22 17:43 BUN/Creatinine Ratio 16.7 (10-20) 11/30/22 17:43 Glucose 93 mg/dl (70-99(Fasting)) 11/30/22 17:43 Lactate 2.8 mmol/L (0.4-2.0) H* 11/30/22 19:46 Calcium 9.8 mg/dl (8.6-10.3) 11/30/22 17:43 Total Bilirubin 1.2 mg/dl (0.2-1.0) H 11/30/22 17:43 AST 19 U/L (13-39) 11/30/22 17:43 ALT 19 U/L (7-52) 11/30/22 17:43 Alkaline Phosphatase 62 U/L (34-104) 11/30/22 17:43 Troponin I High Sens 9.1 pg/ml (0-20) 11/30/22 19:45 Total Protein 7.2 gm/dl (6.0-8.3) 11/30/22 17:43 Albumin 4.2 gm/dl (3.4-5.0) 11/30/22 17:43 Globulin 3.0 gm/dl (2.5-4.0) 11/30/22 17:43 Albumin/Globulin Ratio 1.4 (0.9-2) 11/30/22 17:43 Procalcitonin < 0.05 ng/ml (0-0.5) 11/30/22 17:43 SARS-CoV-2 (PCR) NEGATIVE (Negative) 11/30/22 19:28 Influenza Type A (PCR) Negative (Neg) 11/30/22 19:28 Influenza Type B (PCR) Negative (Neg) 11/30/22 19:28 RSV (RT-PCR) Negative (Neg) 11/30/22 19:28 Impressions Venous Doppler Study 11/30/22 17:33 Exam(s): US VENOUS LEFT LOWER EXTREMITY EXAM: US Duplex Left Lower Extremity Veins CLINICAL HISTORY: Reason for exam: Swelling, pain, redness. Eval DVT/abscess. TECHNIQUE: Real-time duplex ultrasound scan of the left lower extremity veins integrating B-mode two-dimensional vascular structure, Doppler spectral analysis, color flow Doppler imaging and compression. COMPARISON: None. FINDINGS: Deep veins: Unremarkable. No DVT in the visualized common femoral, femoral, proximal deep femoral or popliteal veins. The veins demonstrate normal color flow, are normally compressible, with normal phasic flow and/or augmentation response. Superficial veins: Unremarkable. No thrombus in the visualized great saphenous vein. Soft tissues: Edema is seen in the left lower extremity. No popliteal cyst. IMPRESSION: No evidence of deep vein thrombosis in the left lower extremity. Electronically signed by: Kody Vicente MD 11/30/22 21:42 PM Code Status & VTE Plan VTE Prophylaxis Plan VTE Prophylaxis will be ordered: Yes PG Care Time/CCT Total # of Minutes Spent Total Time Spent with Patient: Total time spent is greater than 50% in coordination of care (as documented) at patient's floor/unit and/or counseling patient: Coding Level of Care Code 09400 INT INP/OBS CARE 3/75MIN Diagnoses Cellulitis of left leg L03.116 Severe obstructive sleep apnea G47.33 HTN (hypertension) I10 Hypertension type: essential hypertension Elevated lactic acid level R79.89 (3) HTN (hypertension) Hypertension type: essential hypertension Qualified Code(s): I10 - Essential (primary) hypertension
[2022-11-30] MEDS ORDERED: MoRPHine SULFATE 2 MG/ML CARP IV PRN (23:27)
[2022-11-30] MEDS ORDERED: ACETAMINOPHEN 325 MG TAB PO PRN (23:27)
[2022-11-30] MEDS ORDERED: ONDANSETRON INJ 2 MG/ML 2 ML VIAL IV PRN (23:27)
[2022-11-30] MEDS ORDERED: traMADol HCL 50 MG TABLET PO PRN (23:27)
[2022-11-30] MEDS ORDERED: MoRPHine SULFATE 4 MG/ML 1 ML CARP\\VIAL IV PRN (23:27)
[2022-11-30] MEDS ORDERED: DOCUSATE SODIUM 100 MG CAP PO PRN (23:27)
[2022-11-30] MEDS ORDERED: SODIUM CHLORIDE 0.9% 1000ML 1,000 ML IV SCH (23:45)
[2022-12-01] MEDS ORDERED: DAPTOmycin 525 MG in SYRINGE 0 ML IV SCH
[2022-12-01 06:44] LABS: Hematocrit (blood only) 43.6 % (42.0-52.0); Hemoglobin 14.7 g/dl (14.0-18.0); Mean Corpuscular Hemoglobin 30.6 pg (25.0-34.0); Mean Corpuscular Hgb Conc 33.7 g/dL (32.0-36.0); Mean Corpuscular Volume 90.8 fL (80.0-100.0); Mean Platelet Volume 10.8 fL (9.4-12.4); Platelet Count 146 K/uL (130-400); RDW Coefficient of Variation 14.2 % (11.5-14.5); RDW Standard Deviation 47.6 fL (36.4-46.3); White Blood Count 9.47 K/ul (4.8-10.8)
[2022-12-01 07:01] LABS: Albumin Level 3.6 gm/dl (3.4-5.0); BUN Creatinine Ratio 14.6 (10-20); Bilirubin Direct 0.2 mg/dl (0-0.2); Bilirubin,Total 1.7 mg/dl (0.2-1.0); Calcium 8.6 mg/dl (8.6-10.3); Creatinine Clr Calc Pharmacy 186.3 ml/min; Est GFR (African American) 113.8 ml/min; Est GFR (Non-African American) 98.2 ml/min; Potassium 3.6 mmol/L (3.5-5.1); Total Protein 6.3 gm/dl (6.0-8.3)
[2022-12-01 07:09] LABS: INR 2.1 (0.9-1.1); Prothrombin Time 22.2 Seconds (9.0-12.0)
--- NOTE | 2022-12-01 08:04 | XRay Report ---
XR chest 1V portable HISTORY: sepsis COMPARISON: Chest 08/08/2018. FINDINGS: The cardiac silhouette remains mildly enlarged. No pleural effusions. No pneumothorax. No n ew focal lung consolidations to suggest a pneumonia. No evidence for pulmonary edema. IMPRESSION: No significant change compared to the prior study. No acute process. ACT 112: Negative or not required by law. Electronically signed by: Fish Concepcion M.D. 12/01/2022 7:05 AM
[2022-12-01] MEDS ORDERED: LOSARTAN/HCTZ 50/12.5MG TAB PO SCH (09:00)
[2022-12-01] MEDS ORDERED: NICOTINE 7 MG/24 HR TDSY TD SCH (09:00)
[2022-12-01] MEDS ORDERED: amLODIPine BESYLATE 5 MG TAB PO SCH (09:00)
[2022-12-01] MEDS ORDERED: OPTIRAY 320 500ml IV ONE (11:02)
--- NOTE | 2022-12-01 11:28 | CT Scan Report ---
CT tib/fib LT w con HISTORY: 56 years-old Male cellulitis exclude abscess acute pain and swelling of the left lower extr emity with soft tissue infection COMPARISON: None TECHNIQUE: Multiple axial CT images of the left tibia and fibula were obtained following the intraven ous administration of 115 mL Optiray 320. A dose lowering technique was used consistent with the prin cipals of RAMESH. FINDINGS: Partially imaged calcified suprapatellar loose body measures approximately 3.5 x 2.5 cm. Small joint effusion of the knee. Tricompartmental osteoarthritis is moderate lateral and patellofemoral compartm ents and severe within the medial compartment. There is associated chondrocalcinosis. No acute fractu re, dislocation, osseous erosion or suspicious bone lesion identified. Moderate osteoarthritis of the ankle with chronic appearing osteochondral defects, most pronounced in the medial talar dome. Enthes ophytes of the calcaneus. There is skin thickening with moderate subcutaneous edema within the mid to lower leg. No abscess or intramuscular fluid collections. Tendons and ligaments are suboptimally evaluated by CT technique. IMPRESSION: 1. Skin thickening with subcutaneous edema of the mid to lower leg suggestive of cellulitis, venous s tasis or lymphedema. 2. No fluid collection to suggest abscess. 3. No acute osseous abnormality. 4. Osteoarthritis of the knee and ankle. 5. Partially imaged calcified suprapatellar intra-articular loose body. ACT 112: Negative or not required by law. The above report was generated using voice recognition software. It may contain grammatical, syntax o r spelling errors. Electronically signed by: Hamzah Armstrong M.D. 12/01/2022 11:26 AM
--- NOTE | 2022-12-01 14:56 | Discharge Summary ---
Date of Service December 01, 2022 Admission HPI Per Admitting Provider Eduardo Young is a pleasant 56-year-old male with history of prior DVT on Coumadin anticoagulation (INR = 2.5), hypertension, severe sleep apnea and chronic venous stasis presenting with cellulitis of the left lower extremity. Patient does have history of chronic venous stasis and has had a wound on his posterior left leg for the last 6 weeks for which she has been treating with local wound care, Theriac/manuka honey ointment. Patient began feeling poorly last evening with chills and rigors. He went to bed around 1800 and slept 12 hours. When he woke this morning he had some increased pain, redness and swelling in his left foot. He relaxed through the day. Around 1500 he got up and had difficulty walking due to pain in his left foot and leg. Patient reports chills and rigors. Did not check his temperature. He denies chest pain or palpitations. He has stable, chronic shortness of breath which is unchanged. He had some mild nausea while in the ER which has since resolved. No vomiting. No diarrhea. No urinary complaints. No additional complaints at this time. In the ER he is afebrile, hypertensive otherwise hemodynamically stable. Elevated lactate = 2.9 --> 2.8 ER course: Ceftriaxone x2 g IV Normal saline x2 L Principal Diagnosis LLE cellulitis Discharge Exam GENERAL: 56 yo morbidly obese M. AAOx4. NAD. LUNGS: Clear to auscultation bilaterally. No W/R/R. CARDIOVASCULAR: Regular rate and rhythm. EXTREMITIES: LLE with edema and erythema. Tender but not markedly tender to palpation. Warm. No obvious fluctuance. Nestor size rather superficial wound on the posterior aspect mid calf. No purulent drainage. Discharge Data Allergies Allergy/AdvReac Type Severity Reaction Status Date / Time No Known Allergies Allergy Unknown Verified 11/30/22 19:35 Consultations 11/30/22 21:34 ED Decision to Admit Stat Ordered Studies Venous Doppler Study 11/30/22 17:33 Exam(s): US VENOUS LEFT LOWER EXTREMITY EXAM: US Duplex Left Lower Extremity Veins CLINICAL HISTORY: Reason for exam: Swelling, pain, redness. Eval DVT/abscess. TECHNIQUE: Real-time duplex ultrasound scan of the left lower extremity veins integrating B-mode two-dimensional vascular structure, Doppler spectral analysis, color flow Doppler imaging and compression. COMPARISON: None. FINDINGS: Deep veins: Unremarkable. No DVT in the visualized common femoral, femoral, proximal deep femoral or popliteal veins. The veins demonstrate normal color flow, are normally compressible, with normal phasic flow and/or augmentation response. Superficial veins: Unremarkable. No thrombus in the visualized great saphenous vein. Soft tissues: Edema is seen in the left lower extremity. No popliteal cyst. IMPRESSION: No evidence of deep vein thrombosis in the left lower extremity. Electronically signed by: Kody Vicente MD 11/30/22 21:42 PM Chest X-Ray 11/30/22 19:03 XR chest 1V portable HISTORY: sepsis COMPARISON: Chest 08/08/2018. FINDINGS: The cardiac silhouette remains mildly enlarged. No pleural effusions. No pneumothorax. No new focal lung consolidations to suggest a pneumonia. No evidence for pulmonary edema. IMPRESSION: No significant change compared to the prior study. No acute process. ACT 112: Negative or not required by law. Electronically signed by: Fish Concepcion M.D. 12/01/2022 7:[address] 12/01/22 09:47 CT tib/fib LT w con HISTORY: 56 years-old Male cellulitis exclude abscess acute pain and swelling of the left lower extremity with soft tissue infection COMPARISON: None TECHNIQUE: Multiple axial CT images of the left tibia and fibula were obtained following the intravenous administration of 115 mL Optiray 320. A dose lowering technique was used consistent with the principals of ALARA. FINDINGS: Partially imaged calcified suprapatellar loose body measures approximately 3.5 x 2.5 cm. Small joint effusion of the knee. Tricompartmental osteoarthritis is moderate lateral and patellofemoral compartments and severe within the medial compartment. There is associated chondrocalcinosis. No acute fracture, dislocation, osseous erosion or suspicious bone lesion identified. Moderate osteoarthritis of the ankle with chronic appearing osteochondral defects, most pronounced in the medial talar dome. Enthesophytes of the calcaneus. There is skin thickening with moderate subcutaneous edema within the mid to lowe r leg. No abscess or intramuscular fluid collections. Tendons and ligaments are suboptimally evaluated by CT technique. IMPRESSION: 1. Skin thickening with subcutaneous edema of the mid to lower leg suggestive of cellulitis, venous stasis or lymphedema. 2. No fluid collection to suggest abscess. 3. No acute osseous abnormality. 4. Osteoarthritis of the knee and ankle. 5. Partially imaged calcified suprapatellar intra-articular loose body. ACT 112: Negative or not required by law. The above report was generated using voice recognition software. It may contain grammatical, syntax or spelling errors. Electronically signed by: Hamzah Armstrong M.D. 12/01/2022 11:26 AM Hospital Course (1) Cellulitis of left leg: Acute/stable/has not been on any antibiotics as an outpatient - Admitted to medical, afebrile w/o elevated wbc or shift. Negative PCT. - Given Ceftriaxone and Daptomycin, continued - air brakes inspector consulted - NSS at 125mL/hr x 1L and stopped, no further fluids needed - Elevated lactate of 2.9 on admit, repeat lactate this morning 2.4 - Pain control ordered with Tylenol and Morphine PRN - Blood cultures ordered and pending - CT w/ contrast of the LLE obtained, no evidence of abscess - Venous doppler of the LLE was negative for DVT - Will refer as outpatient to wound care clinic and plan to dc home on course of oral Doxycycline 100mg BID x 10 days (2) Severe obstructive sleep apnea: Chronic. Patient reports compliance with his home BiPAP. He has his machine with him - Continue biPAP qHS, home machine (3) HTN (hypertension): Chronic/stable - BP well controlled on current regimen - Pain control with Tylenol and Morphine PRN - Continue Amlodipine, Losartan - Lasix held, but would resume this. He admits that he is noncompliant with taking this. (4) Elevated lactic acid level: Uncertain chronicity - Patient remains hemodynamically stable. - No evidence of sepsis syndrome or systemic signs of infection - No significant change with IVF Plan Patient is medically and hemodynamically stable for discharge home today with referral to the wound clinic and oral antibiotics. He should follow up with his PCP within 1 week or sooner if needed. Above plan of care has been d/w Dr. Caban who is in agreement with aforementioned. Total Time Total Time Spent Total Time Spent (In Minutes): >30 minutes Discharge Plan Discharge Items Patient Disposition: Home - Self-Care Reason For Visit: LLE CELLULITIS Discharge Diagnosis: skin infection of the left lower extremity Activity: Per Instructions section Non-emergency contact: Primary Care Provider Call non-emergency contact if: you have any medication questions Follow-up/Referrals: Joel Mendoza, [Primary Care Provider] - Diet: Regular Addtl Attending Provider Instructions: You were hospitalized due to an infection in your left lower extremity. You have been treated with IV antibiotics and notice already to have an improvement. You are going to be discharged home on a course of oral antibiotics called Doxycycline. You will take this medication twice a day. Do not take it with calcium products or milk. Maintain an upright position for at least 30 minutes after taking the pill. Please complete the course as prescribed. You had a CT scan done of your leg which did not show any evidence of a fluid collection that would require drainage. You should keep your leg elevated as much as possible to reduce swelling. An appointment is being made for you in our wound clinic to ensure that your wound is healing adequately. Please make sure you take your Lasix as directed. Do not skip doses. Follow up with your primary care provider within 1 week or sooner if needed. If you have any questions or concerns after you leave the hospital, feel free to call the nonemergency number listed on your discharge paperwork. In the event of a medical emergency, call 911. Pending Studies at Discharge: No Stand-Alone Forms: [employer], Smoking Cessation Medications and DC Order Prescriptions: New doxycycline hyclate 100 mg tablet 100 mg PO BID 10 Days Qty: 20 0RF Continued warfarin 5 mg tablet See Rx Instructions .ROUTE .COMPLEX Rx Instructions: TAKES 5 MG ON SUN, TUES, THURS, & SAT, THEN 7.5 MG ON MON, WED, & FRI. EVENINGS. furosemide 40 mg tablet 40 mg PO QAM amlodipine 5 mg tablet 5 mg PO DAILY tramadol 50 mg tablet 50 mg PO Q8H PRN (Reason: Pain) losartan-hydrochlorothiazide 100-25 mg tablet 1 tab PO DAILY Admission Data Admit Date/Time: 11/30/22 22:08 Attending Provider: Duong Caban Admit Provider: Bharti Gary Primary Care Provider: Joel Mendoza Other Providers: Bharti Gary Coding Level of Care Code 89083 INP/OBS DISCH >30 MIN Diagnoses Cellulitis of left leg L03.116 Severe obstructive sleep apnea G47.33 HTN (hypertension) I10 Hypertension type: essential hypertension Elevated lactic acid level R79.89
[2022-12-01] MEDS ORDERED: WARFARIN SOD 5 MG TAB PO SCH (16:00)
--- NOTE | 2022-12-01 19:32 | Electrocardiogram Report ---
Test Reason : Blood Pressure : / mmHG Vent. Rate : 095 BPM Atrial Rate : 095 BPM P-R Int : 214 ms QRS Dur : 094 ms QT Int : 328 ms P-R-T Axes : 024 016 031 degrees QTc Int : 412 ms Sinus rhythm with 1st degree A-V block Incomplete right bundle branch block Borderline ECG When compared with ECG of 08-AUG-2018 10:20, Incomplete right bundle branch block is now Present Confirmed by Juan López ([id number]) on 12/01/2022 7:32:21 PM Referred By: REFERRED SELF Confirmed By:Juan López
[2022-12-01] MEDS ORDERED: cefTRIAXone SODIUM 2,000 MG in DEXTROSE 5% 50 ML IV SCH (20:00)
[2022-12-02] MEDS ORDERED: WARFARIN SOD 7.5 MG TAB PO SCH (16:00)
== END 2022-12-01 17:06 | disposition home or self-care (01) | DRG 603 ==
LOC: ED 17:18 → SUATTDRO 22:08 → 3E 22:08